=== PATIENT | female | born 1955 | race Caucasian/White ===

== ENCOUNTER 2019-12-24 07:31 | Outpatient (CLI) | payer OTHER, SELFPAY ==
--- NOTE | ~2019-12-24 | MM_ITS ---
EXAMINATION: MM screening [facility] w valerie HISTORY: Screening mammogram TECHNIQUE: Craniocaudal and mediolateral oblique 3-D tomosynthesis images were obtained and synthetic 2-D images were generated. CAD analysis was submitted and interpreted. COMPARISON: 12/06/2018 bilateral diagnostic digital mammogram 10/08/2016 and [facility] bilateral digital mammogram 05/11/2015 bilateral diagnostic digital mammogram and limited right breast ultrasound 05/01/2015 bilateral digital screening mammogram BREAST PARENCHYMAL COMPOSITION: There are scattered areas of fibroglandular density. FINDINGS: There is postoperative scarring and calcification of fat necrosis in the mid to upper outer right breast, with overlying retraction, stable since 12/06/2018. Status post right partial mastectom y for breast cancer. No interval suspicious mass or new architectural distortion or any malignant calcification, skin thic kening or new retraction is detected. In either breast. Occasional benign calcifications. There is no evidence of suspicious mass, calcification, or new architectural distortion to suggest malignancy in either breast. There has been no suspicious interval change. IMPRESSION: 1. Status post right partial mastectomy for breast cancer 2. No mammographic evidence of malignancy 3. Routine mammographic screening follow-up is recommended BI-RADS Category 2: Benign finding(s). Reviewed, dictated and finalized at location A. SURY ASSOCIATE
== END 2019-12-24 07:32 | disposition home or self-care (01) ==
LOC: ANHIMG 07:33
PROVIDERS: PCP Family Medicine; Visit Provider Obstetrics & Gynecology
DX: Z12.31 Encounter for screening mammogram for malignant neoplasm of breast (principal)
CPT/HCPCS: 77063; 77067

== ENCOUNTER 2020-05-24 13:18 | Outpatient (CLI) | payer OTHER, SELFPAY ==
--- NOTE | ~2020-05-24 | MM_ITS ---
EXAMINATION: MM diagnostic [facility] BI w valerie HISTORY: Palpable lump of the upper outer quadrant of the right breast, history of right breast cance r TECHNIQUE: Craniocaudal, mediolateral, and mediolateral oblique 3-D tomosynthesis images of the breas ts were performed and synthetic 2-D images were generated. CAD analysis was submitted and interpreted . COMPARISON: 12/24/2019, 12/06/2018,10/08/2016 BREAST PARENCHYMAL COMPOSITION: There are scattered areas of fibroglandular density. FINDINGS: There are lumpectomy changes in the upper outer quadrant of the right breast which include architectural distortion, fat necrosis, and dystrophic calcification. The palpable abnormality of con cern in the right breast corresponds to the small area of fat necrosis and associated dystrophic calc ification. There is no suspicious mass, calcification, or architectural distortion in either breast. There has been no suspicious interval change. IMPRESSION: 1. No mammographic evidence of malignancy. 2. Recommend routine screening mammography in one year. BI-RADS Category 2: Benign finding(s). Reviewed, dictated and finalized at location A.
== END 2020-05-24 13:19 | disposition home or self-care (01) ==
PROVIDERS: PCP Family Medicine; Visit Provider Obstetrics & Gynecology
DX: N63.10 Unspecified lump in the right breast, unspecified quadrant (principal); Z85.3 Personal history of malignant neoplasm of breast
CPT/HCPCS: 77062; 77066; G0279

== ENCOUNTER 2020-12-31 11:33 | Outpatient (CLI) | payer BC, SELFPAY ==
--- NOTE | ~2020-12-31 | US_ITS ---
EXAMINATION: US venous doppler [facility] DATE: 12/31/2020 12:05 INDICATION: Left lower limb swelling TECHNIQUE: Grayscale ultrasound images without and with compression and Doppler ultrasound images of the left lower extremity veins were obtained. COMPARISON: None. FINDINGS: The visualized portions of left common femoral vein, profunda (deep) femoral vein, femoral vein, popl iteal vein, peroneal veins, posterior tibial veins, gastrocnemius vein and greater saphenous vein out flow are patent. IMPRESSION: 1. No deep venous thrombosis in the left lower limb. Reviewed, dictated and finalized at location A. TENANT GOVERNOR
== END 2020-12-31 11:34 | disposition home or self-care (01) ==
PROVIDERS: PCP Family Medicine; Visit Provider Internal Medicine Cardiovascular Disease
DX: R60.9 Edema, unspecified (principal)
CPT/HCPCS: 93971

== ENCOUNTER 2021-05-11 07:23 | Outpatient (CLI) | payer BC, SELFPAY ==
--- NOTE | ~2021-05-11 | MM_ITS ---
EXAMINATION: MM screening [facility] BI w valerie HISTORY: Screening TECHNIQUE: Craniocaudal and mediolateral oblique 3-D tomosynthesis images were obtained and synthetic 2-D images were generated. CAD analysis was submitted and interpreted. COMPARISON: Comparison to multiple prior studies sequentially, with oldest reviewed study dated 05/11. BREAST PARENCHYMAL COMPOSITION: There are scattered areas of fibroglandular density. FINDINGS: There is architectural distortion and dystrophic calcification in the upper outer quadrant of the right breast, consistent with previous lumpectomy site. There is no evidence of suspicious mas s, calcification, or architectural distortion to suggest malignancy in either breast. There has been no suspicious interval change. IMPRESSION: 1. No mammographic evidence of malignancy. 2. Recommend routine screening mammography in one year. BI-RADS Category 2: Benign finding(s). Reviewed, dictated and finalized at location A.
== END 2021-05-11 07:24 | disposition home or self-care (01) ==
LOC: ANHIMG 07:25
PROVIDERS: PCP Family Medicine; Visit Provider Obstetrics & Gynecology
DX: Z12.31 Encounter for screening mammogram for malignant neoplasm of breast (principal)
CPT/HCPCS: 77063; 77067

== ENCOUNTER 2021-09-07 08:08 | Outpatient (CLI) | payer BC, SELFPAY ==
--- NOTE | ~2021-09-07 | XR_ITS ---
XR abdomen/kub 1V DATE: 09/07/2021 08:20 INDICATION: Constipation TECHNIQUE: AP projection, 2 views COMPARISON: None FINDINGS: There is a prominent amount of fecal material throughout the colon consistent with clinical complaint of constipation. No bowel obstruction is detected. No visceromegaly is evident. The psoas shadows appear intact. There is levoscoliosis and degenerative change of the lumbar spine. IMPRESSION: Prominent amount of fecal material in the colon consistent with constipation Reviewed, dictated and finalized at Location A. Reviewed, dictated and finalized at location A.
== END 2021-09-07 08:09 | disposition home or self-care (01) ==
LOC: ANHIMG 08:12
PROVIDERS: PCP Family Medicine; Visit Provider Nurse Practitioner Family
DX: K59.00 Constipation, unspecified (principal)
CPT/HCPCS: 74018

== ENCOUNTER 2022-06-06 07:14 | Outpatient (CLI) | payer BC, SELFPAY ==
--- NOTE | ~2022-06-06 | MM_ITS ---
EXAMINATION: MM screening [facility] BI w valerie HISTORY: Screening TECHNIQUE: Craniocaudal and mediolateral oblique 3-D tomosynthesis images were obtained and synthetic 2-D images were generated. CAD analysis was submitted and interpreted. COMPARISON: Comparison to multiple prior studies sequentially, with oldest reviewed study dated 09/17. BREAST PARENCHYMAL COMPOSITION: There are scattered areas of fibroglandular density. FINDINGS: There is no evidence of suspicious mass, calcification, or architectural distortion to sugg est malignancy in either breast. There has been no suspicious interval change. IMPRESSION: 1. No mammographic evidence of malignancy. 2. Recommend routine screening mammography in one year. BI-RADS Category 1: Negative Reviewed, dictated and finalized at location A.
== END 2022-06-06 07:15 | disposition home or self-care (01) ==
LOC: ANHIMG 07:16
PROVIDERS: PCP Family Medicine; Visit Provider Obstetrics & Gynecology
DX: Z12.31 Encounter for screening mammogram for malignant neoplasm of breast (principal)
CPT/HCPCS: 77063; 77067

== ENCOUNTER → 2023-06-08 10:35 | Outpatient (CLI) | payer MEDICARE, SELFPAY ==
--- NOTE | ~2023-06-08 | MM_ITS ---
EXAMINATION: MM screening [facility] w valerie HISTORY: Screening mammogram, history of right breast cancer TECHNIQUE: Craniocaudal and mediolateral oblique 3-D tomosynthesis images were obtained and synthetic 2-D images were generated. CAD analysis was submitted and interpreted. COMPARISON: 06/06/2022, 05/11/2021, 05/24/2020 BREAST PARENCHYMAL COMPOSITION: There are scattered areas of fibroglandular density. FINDINGS: Lumpectomy changes are noted in the right breast. No suspicious mass, calcification, or arc hitectural distortion are identified in either breast to suggest malignancy. There has been no suspic ious interval change. IMPRESSION: 1. No mammographic evidence of malignancy. 2. Recommend routine screening mammography in one year. BI-RADS Category 2: Benign finding(s). Reviewed, dictated and finalized at location A.
== END ==
PROVIDERS: PCP Family Medicine; Visit Provider Obstetrics & Gynecology
DX: Z12.31 Encounter for screening mammogram for malignant neoplasm of breast (principal)
CPT/HCPCS: 77063; 77067

== ENCOUNTER 2023-06-23 08:11 | Outpatient (CLI) | payer MEDICARE, SELFPAY ==
--- NOTE | ~2023-06-23 | NM_ITS ---
EXAM: NM gastric emptying study DATE: 06/23/2023 12:41 INDICATION: Constipation, unspecified. TECHNIQUE: A gastric emptying study was performed using the methodology of Juan R DEGROOT, et al. J Nucl Med 2007; 48:568-572. The patient was given a meal consisting of 2 scrambled eggs labeled with 0.944 mCi Tc-99m sulfur colloid, 2 slices of toast, two packages of jam, and approximately 120 mL of water . Simultaneous anterior and posterior 1-min images of the abdomen were obtained with the patient supi ne at multiple time points over a total period of 4 hours. The geometric mean of anterior and posteri or views was determined, and the percentage retention was calculated for each time point. COMPARISON: None. FINDINGS: Gastric retention of the radiotracer-labeled meal was 54%, 23%, and 2% at the 1-hour, 2-ho ur, and 4-hour time points, respectively. With this technique, apparent rapid gastric emptying is sug gested by <30% gastric retention at 1 hour. Delayed gastric emptying is defined by gastric retention of >90% at 1 hour, >60% retention at 2 hours, or >10% retention at 4 hours. IMPRESSION: 1. Normal gastric emptying. Reviewed, dictated and finalized at location A. IMPRESSION: 1. Normal gastric emptying.
== END 2023-06-23 08:12 | disposition home or self-care (01) ==
PROVIDERS: PCP Family Medicine; Visit Provider Nurse Practitioner Family
DX: K59.00 Constipation, unspecified (principal)
CPT/HCPCS: 78264; A9541

== ENCOUNTER 2024-01-22 09:45 | Outpatient (CLI) | payer MEDICARE, SELFPAY ==
--- NOTE | ~2024-01-22 | CT_ITS ---
EXAMINATION: CT diagnostic chest wo con DATE: 01/22/2024 10:10 INDICATION: Shortness of breath, chronic cough TECHNIQUE: Computed tomography (CT) of the chest was performed without intravenous contrast. The dose -length product (DLP) was 144.79 mGy-cm. Automated exposure control and iterative reconstruction tech nique were employed. COMPARISON: None FINDINGS: There is scarring of the lung apices. There are minimal subpleural opacities of the upper l lilly zones which could reflect sequela of prior infection. There are a few scattered small nodules shreya suring 2 to 3 mm, likely old granulomatous disease. The lungs are free of acute opacities. No pleural effusion or pneumothorax. There is mild atelectasis of the lingula. No pathologically enlarged thora cic lymph nodes are identified. The heart size is normal. There is a 1.6 cm cyst of the right hepatic lobe. There are loose bodies in the right shoulder. There is moderate thoracic spondylosis. IMPRESSION: 1. No CT correlate for the patient's symptoms. Reviewed, dictated and finalized at location B. LIFE FORENSIC GENETICIST
== END 2024-01-22 09:46 | disposition home or self-care (01) ==
PROVIDERS: PCP Family Medicine; Visit Provider Nurse Practitioner Family
DX: M35.08 Sjogren syndrome with gastrointestinal involvement (principal); Z77.22 Contact with and (suspected) exposure to environmental tobacco smoke (acute) (chronic)
CPT/HCPCS: 71250

== ENCOUNTER 2024-07-11 15:34 | Inpatient (IN) | payer MEDICARE, SELFPAY ==
[2024-07-11] VITALS (10 sets, daily range): BP systolic 114–131; BP diastolic 58–97; PULSE 98–118; RESP 16–24; TEMP 36.6–37.3; O2SAT 96–100; BMI 21.4
--- NOTE | ~2024-07-11 | XR_ITS ---
EXAMINATION: XR chest 1V portable DATE: 07/11/2024 16:20 INDICATION: Palpitations. Cough. Congestion. TECHNIQUE: A single frontal view of the chest was obtained on 2 radiographs. COMPARISON: Chest 2 views 05/08/2008, chest CT 01/22/2024 FINDINGS: There are airspace opacities in the lower lung zones. There is mild scarring at the lung ap ices. No pleural effusion or pneumothorax. The heart size is normal. IMPRESSION: 1. Airspace opacities in the lower lung zones, consistent with atelectasis/scarring versus pneumonia. 2. Mild scarring at the lung apices. Reviewed, dictated and finalized at location A. IMPRESSION: 1. Airspace opacities in the lower lung zones, consistent with atelectasis/scar ring versus pneumonia. 2. Mild scarring at the lung apices.
--- NOTE | ~2024-07-11 | XR_ITS ---
EXAMINATION: XR chest 1V portable DATE: 07/13/2024 09:51 INDICATION: Cough TECHNIQUE: frontal view of the chest was obtained. COMPARISON: Chest radiograph dated 07/11/2024 FINDINGS: Chronic moderate biapical pleural-parenchymal scarring. Patchy airspace opacities at the bilateral lo wer lung zones with appearance on prior CT favoring pneumonia over atelectasis. No pleural effusion o r pneumothorax. Heart size within normal limits for AP technique. Mild osteoarthritis at the bilater al shoulders with multiple loose osteochondral bodies at the right deep subscapular recess. IMPRESSION: 1. Patchy airspace opacities in bilateral lower lung zones consistent with pneumonia. Reviewed, dictated and finalized at location A. IMPRESSION: 1. Patchy airspace opacities in bilateral lower lung zones consistent with pneu monia.
--- NOTE | ~2024-07-11 | CT_ITS ---
Clinical Indication: Pulmonary embolus CT Scan of the Chest with Contrast: Technique: Contiguous sections were acquired throughout the chest after intravenous administration of 100 cc of Omnipaque 350. Dose reduction technique was used on this scan by utilizing automated expos ure control and iterative reconstruction technique. The dose-length product (DLP) was 180.78 mGy-cm. COMPARISON: 01/22/2024 Findings: There is no evidence of any significant mediastinal, hilar or axillary lymphadenopathy. There is no f illing defect in the pulmonary arterial tree to suggest pulmonary embolus. There is no evidence of ao rtic dissection or aneurysm. There is no evidence of pleural or pericardial effusion. There is patchy bilateral lower lobe airspace consolidation, suspicious for pneumonia versus possibly atelectasis. There is mild bibasilar bronchiolectasis and mild subpleural reticulation, compatible w ith minimal chronic interstitial change. There is mild biapical scarring. Images through the upper abdomen reveal no abnormalities. Impression: No evidence of pulmonary embolus, aortic dissection, or aortic aneurysm. Patchy bibasilar pneumonia. Probable minimal chronic interstitial changes. Reviewed, dictated and finalized at [facility]. Impression: No evidence of pulmonary embolus, aortic dissection, or aortic aneurysm. Patchy bibasilar pneumonia. Probable minimal chronic interstitial changes.
--- NOTE | 2024-07-11 15:37 | ECG_ITS ---
Test Date: 2024-07-11 15:40:57 Measurements Intervals [place] Rate: 150 P: 0 UT: 0 QRS: 70 QRSD: 93 T: 67 QT: 266 QTc: 421 Interpretive Statements ATRIAL FIBRILLATION WITH RAPID VENTRICULAR RESPONSE INCOMPLETE RIGHT BUNDLE BRANCH BLOCK [90+ ms QRS DURATION, TERMINAL R IN V1/V2, 40+ ms S IN I/aVL/V4/V5/V6] No previous ECG available for comparison Electronically Signed On 07-12-2024 15:29:25 CDT by Marilin Xiao M.D.
--- NOTE | 2024-07-11 15:44 | ED.ARRPALP ---
HPI - Arrhythmia/Palpitations General Chief Complaint: Arrhythmia/Palpitations <Jennifer Cast PA-C - Last Filed: 07/12/24 10:50> Stated Complaint: A FIB WITH RVR <Jennifer Cast PA-C - Last Filed: 07/12/24 10:50> Time Seen by Provider: 07/11/24 15:44 <Jennifer Cast PA-C - Last Filed: 07/12/24 10:50> Focused HPI: This is a 68 year old female that presents to the ER for atrial fibrillation with RVR. She was sent from her doctor's office. No previous history of this. Reports some shortness of breath and a cough. Denies chest pain. GENERAL: Well-appearing, well-nourished, and in no acute distress. HEAD: Normocephalic, atraumatic. CHEST: Clear to auscultation. ?No respiratory distress. HEART: Irregularly irregular? NEURO: ?Alert and oriented x3. Patient screened in triage and initial orders placed.? ?Additional care and disposition to be based upon?diagnostic testing and treatment. <Jennifer Cast PA-C - Last Filed: 07/12/24 10:50> Source: patient <Maulik Tran MD - Last Filed: 07/11/24 18:51> Mode of arrival: ambulatory <Maulik Tran MD - Last Filed: 07/11/24 18:51> Limitations: no limitations <Maulik Tran MD - Last Filed: 07/11/24 18:51> History of Present Illness HPI narrative: 68-year-old otherwise healthy here with the complaints of this condition for past 1 week was at the doctor's office had an EKG done which showed AFib but was later referred here to the ER for further workup. Patient denies having any chest pain, lightheadedness. No previous history of AFib. <Maulik Tran MD - Last Filed: 07/11/24 18:51> complaint: rapid heart beat <Maulik Tran MD - Last Filed: 07/11/24 18:51> Duration: constant <Maulik Tran MD - Last Filed: 07/11/24 18:51> Severity: moderate <Mualik Tran MD - Last Filed: 07/11/24 18:51> Associated symptoms: denies other symptoms <Maulik Tran MD - Last Filed: 07/11/24 18:51> Related Data Home Medications: Home Medications Medication Instructions Recorded Confirmed No Home Medications 07/11/24 07/11/24 <Jennifer Cast PA-C - Last Filed: 07/12/24 10:50> Allergies/Adverse Reactions: Allergies Allergy/AdvReac Type Severity Reaction Status Date / Time No Known Allergies Allergy Unknown Verified 07/11/24 09:31 <Jennifer Cast PA-C - Last Filed: 07/12/24 10:50> Review of Systems Review of Systems: All systems reviewed & are unremarkable except as noted in HPI and below <Maulik Tran MD - Last Filed: 07/11/24 18:51> Constitutional: Constitutional: Reports no additional constitutional complaints <Maulik Tran MD - Last Filed: 07/11/24 18:51> Eyes: Eyes: Reports no additional eye complaints <Maulik Tran MD - Last Filed: 07/11/24 18:51> ENT: Reports system reviewed and no additional complaints, except as documented <Maulik Tran MD - Last Filed: 07/11/24 18:51> Cardiovascular: Cardiovascular: Reports no additional cardiovascular complaints <Maulik Tran MD - Last Filed: 07/11/24 18:51> Respiratory: Respiratory: Reports as per HPI <Maulik Tran MD - Last Filed: 07/11/24 18:51> Gastrointestinal: Gastrointestinal: Reports no additional gastrointestinal complaints <Maulik Tran MD - Last Filed: 07/11/24 18:51> Musculoskeletal: Musculoskeletal: Reports no additional musculoskeletal complaints <Maulik Tran MD - Last Filed: 07/11/24 18:51> Neurologic: Reports system reviewed and no additional complaints, except as documented <Maulik Tran MD - Last Filed: 07/11/24 18:51> PMFSH Past Medical History Medical History: Medical History EDUARDO (acute kidney injury) Alopecia Anxiety Breast cancer Elevated liver enzymes Hypomagnesemia Low back pain Neck pain Raynaud's phenomenon (by history or observed) Screening, lipid Shoulder pain Sjogrens syndrome Vitamin B12 defic
[2024-07-11] MEDS: dilTIAZem HCl INJ 25 MG/5 ML VIAL 10 MG IV PUSH (15:56)
[2024-07-11] MEDS: SODIUM CHLORIDE 0.9% IV 1,000 ML 150 ML IV CONT (15:56)
[2024-07-11 16:08] LABS: Basophils Absolute Auto 0.1 K/mm3 (0.0-0.1); Basophils Percent Auto 0.4 % (0.2-1.2); Eosinophils Absolute Auto 0.1 K/mm3 (0-0.3); Eosinophils Percent Auto 0.7 % (0-4.4); Hematocrit 42.9 % (37.0-47.0); Hemoglobin 14.3 g/dL (12.0-15.0); Immature Granulocyte Absolute 0.25 K/mm3 (0.00-0.031); Immature Granulocyte Percent A 1.3 % (0-0.5); Lymphocytes Absolute Auto 1.56 K/mm3 (0.9-3.2); Lymphocytes Percent Auto 8.4 % (18.3-44.2); Mean Corpuscular HGB Conc 33.3 g/dl (32-36); Mean Platelet Volume 9.2 fl (7.4-10.4); Monocytes Absolute Auto 1.1 K/mm3 (0.1-0.6); Monocytes Percent Auto 5.9 % (2.6-8.5); Neutrophils Absolute Auto 15.4 K/mm3 (1.3-6.7); Neutrophils Percent Auto 83.3 % (45.5-73.1); Platelet Count Result 359 k/mm3 (150-375); Red Blood Count 4.47 M/mm3 (4.2-5.4); Red Cell Distribution Width 12.7 % (11.5-14.5); White Blood Count 18.5 K/mm3 (4.5-10.0)
[2024-07-11 16:25] LABS: Alanine Aminotransferase 32 U/L (6-35); Albumin Level 4.3 g/dL (3.5-5.1); Alkaline Phosphatase 84 U/L (38-126); Anion Gap 15 mmol/L (4-12); Aspartate Amino Transferase 43 U/L (14-36); Bilirubin,Total 1.1 mg/dL (0.2-1.3); Blood Urea Nitrogen 20 mg/dL (7-17); Calcium 8.7 mg/dL (8.4-10.2); Carbon Dioxide 23 mmol/L (22-30); Chloride 96 mmol/L (98-107); Estimated CRCL calculation 59 ml/min; Estimated Glomerular Filt Rate > 60; Glucose 101 mg/dL (65-110); Lipase 126 U/L (23-300); Sodium 134 mmol/L (137-145)
[2024-07-11 16:32] LABS: INR 1.1; Prothrombin Time 14.8 Seconds (11.1-14.7)
[2024-07-11 16:33] LABS: Partial Thromboplastin Time 25.8 Seconds (22.3-36.8)
[2024-07-11 16:34] LABS: Troponin I < 0.012 ng/mL (0.000-0.034)
--- NOTE | 2024-07-11 17:05 | ECG_ITS ---
Test Date: 2024-07-11 17:28:47 Measurements Intervals [place] Rate: 106 P: 0 NM: 0 QRS: 67 QRSD: 90 T: 71 QT: 318 QTc: 423 Interpretive Statements ATRIAL FIBRILLATION WITH RAPID VENTRICULAR RESPONSE INCOMPLETE RIGHT BUNDLE BRANCH BLOCK Compared to ECG 07/11/2024 15:40:57 HEART RATE IS SLOWER NOW Electronically Signed On 07-12-2024 15:32:41 CDT by Marilin Xiao M.D.
[2024-07-11] MEDS: dilTIAZem 100 MG/100 ML 100 MG/100 ML BAG IV CONT (17:55)
--- NOTE | 2024-07-11 18:34 | PM.IMHP ---
H&P: HPI History of Present Illness Date/Time: 07/11/24 18:34 Chief Complaint: palpitations Narrative: This is a 68-year-old female with a significant past medical history of anxiety, breast cancer, Raynaud's phenomenon, Sjogren syndrome, vitamin B12 deficiency presented to the hospital with palpitations. She was recently at an urgent care in [facility] and was prescribed azithromycin, Solu-Medrol Dosepak, Tessalon Perles, promethazine cough syrup, and Breztri inhaler. Patient states that she could not stop coughing and still had shortness of breath and was waking up in the middle night with sweats. Since she was not feeling better after her urgent care visit she initially went to her primary care office today for additional workup. She has been battling this upper respiratory infection for 10 days. She was found to be in AFib with RVR with a rate of 150 and was sent to the hospital for further workup. Workup in the hospital included a chest x-ray which showed airspace opacities in the lower lung zones consistent with atelectasis versus pneumonia, mild scarring at the lung apices. Initial labs showed a white blood cell count of 18.5, sodium 134, chloride 96, AST 43, troponin was negative, lipase 126, TSH 2.330. EKG here at the hospital showed AFib with RVR with a rate of 106, QTC 423. Patient was given 10 mg IV push of Cardizem and started on Cardizem drip at 5 mg/hour. Review of Systems Review of Systems: All systems reviewed & are unremarkable except as noted in HPI and below Constitutional: Constitutional: Reports as per HPI and Reports no additional constitutional complaints Eyes: Eyes: Reports as per HPI and Reports no additional eye complaints ENT: Reports system reviewed and no additional complaints, except as documented and Reports as per HPI Cardiovascular: Cardiovascular: Reports as per HPI and Reports no additional cardiovascular complaints Respiratory: Respiratory: Reports as per HPI and Reports no additional respiratory complaints Gastrointestinal: Gastrointestinal: Reports as per HPI and Reports no additional gastrointestinal complaints Genitourinary: Genitourinary: Reports no additional female genitourinary complaints and Reports as per HPI Musculoskeletal: Musculoskeletal: Reports no additional musculoskeletal complaints and Reports as per HPI Integumentary/Breasts: Skin/Breast: Reports system reviewed and no additional complaints, except as docu and Reports as per HPI Neurologic: Reports system reviewed and no additional complaints, except as documented and Reports as per HPI Psychiatric: Psychiatric: Reports no additional psychiatric complaints and Reports as per HPI [facility] Past Medical History Medical History EDUARDO (acute kidney injury) Alopecia Anxiety Breast cancer Elevated liver enzymes Hypomagnesemia Low back pain Neck pain Raynaud's phenomenon (by history or observed) Screening, lipid Shoulder pain Sjogrens syndrome Vitamin B12 deficiency Surgical History Surgical History H/O: hysterectomy Family History Family History Mother Hypertension Parkinson's disease Grandparent Family history of malignant neoplasm Father No problems noted. Sibling Heart disease Social History Social History Smoking status: Never smoker Second hand tobacco smoke exposure: No Alcohol intake: current Drinks per week: 1 Substance use: never Substance use type: does not use Do You Feel Safe in your Home?: Yes Lack of Transportation: No Lack of Food: Never True Current Housing: I Have Housing Concerned About Future Housing: No Difficulty Paying Gas/Electric Bills: No Difficulty Paying for Meds: No Currently Unemployed: No Education: [employer]
--- NOTE | 2024-07-11 18:44 | ECG_ITS ---
Test Date: 2024-07-11 18:48:33 Measurements Intervals [place] Rate: 101 P: 0 [place]: 0 QRS: 67 QRSD: 88 T: 69 QT: 325 QTc: 422 Interpretive Statements ATRIAL FIBRILLATION WITH RAPID VENTRICULAR RESPONSE INCOMPLETE RIGHT BUNDLE BRANCH BLOCK Compared to ECG 07/11/2024 17:28:47 NO SIGNIFICANT CHANGES Electronically Signed On 07-12-2024 15:38:24 CDT by Marilin Xiao M.D.
[2024-07-11 19:21] LABS: Troponin I < 0.012 ng/mL (0.000-0.034)
[2024-07-11] MEDS: AZITHROMYCIN 250 MG TABLET 500 MG PO (20:32)
--- NOTE | 2024-07-11 20:50 | ADMGEN ---
This patient, Beatriz Courtney, was admitted to IMU Room 205-02. Patient/family oriented to hospital policies and general routines including ID bracelet, bed and alarms, visiting hours, pain management, procedures, bathroom and other care routines, personal items, smoking policy, room service/diet, and visiting hours. Information on how to activate the Rapid Response Team has been discussed. Patient/Family are encouraged to report perceived risks to care and to ask questions if they do not understand what they are told or what they should do.
[2024-07-11 20:51] LABS: Influenza A QL RT-PCR Negative (Negative); Influenza B QL RT-PCR Negative (Negative); RSV RNA, RT-PCR Negative (Negative); SARS-CoV-2 RNA PCR Negative (Negative)
[2024-07-11] MEDS: SODIUM CHLORIDE 0.9% IV 1,000 ML 125 ML IV CONT (21:13)
[2024-07-11] MEDS: APIXABAN 5 MG TABLET PO (21:13)
[2024-07-11 22:17] LABS: Troponin I < 0.012 ng/mL (0.000-0.034)
[2024-07-11 22:26] LABS: MRSA (PCR) NOT DETECTED (NOT DETECTE)
[2024-07-11] MEDS: guaiFENesin/DEXTROMETHORPHAN 10 ML UDC PO (22:47)
[2024-07-11] MEDS: FUROSEMIDE INJ 40 MG/4 ML VIAL 20 MG IV PUSH (23:46)
[2024-07-12] VITALS (29 sets, daily range): BP systolic 102–120; BP diastolic 61–73; PULSE 82–117; RESP 16–24; TEMP 36.6–37.2; O2SAT 92–95
--- NOTE | 2024-07-12 | ECHO_ITS ---
Patient Info Name: Beatriz Courtney Age: 68 years : 1955 Gender: Female Ht: 68 in Wt: 138 lbs BSA: 1.73 m2 HR: 98 bpm BP: 108 / 67 mmHg Heart Rhythm: Atrial Fibrillation Technical Quality: Fair Exam Date: 07/12/2024 10:19 AM Exam Location: Echo Lab Patient Status: Inpatient Admit Date: 07/11/2024 Staff Ordering Physician: Maulik Tran MD Naturopathic Doctor: Akilah Forte RDCS Attending Provider: Chandan Cherry MD Exam Type: CA echo doppler color flow Study Info Indications - afib Complete two-dimensional, color flow and Doppler transthoracic echocardiogram is performed. Summary 1. Complete two-dimensional, color flow and Doppler transthoracic echocardiogram is performed. 2. Left ventricular chamber dimension is normal. 3. Left ventricular systolic function is normal, estimated at 55-60%. 4. The left ventricular diastolic function is normal. 5. E/e' 7 is not elevated. 6. Atrial fibrillation. 7. Left atrial chamber dimension is moderately enlarged. 8. Right atrial chamber dimension is moderately enlarged. 9. There is mild aortic valve sclerosis. 10. There is mild to moderate aortic valve regurgitation. 11. There is mild mitral valve regurgitation. 12. There is trace tricuspid valve regurgitation. 13. No pulmonary hypertension, estimated pulmonary arterial systolic pressure is 25 mmHg. Left Ventricle E/e' 7 is not elevated. Atrial fibrillation. Left ventricular chamber dimension is normal. Left ventricular systolic function is normal, estimated at 55-60%. The left ventricular diastolic function is normal. Right Ventricle Right ventricular systolic function is normal and with normal TAPSE 1.9 cm. Right ventricular chamber dimension is normal. Left Atria Left atrial chamber dimension is moderately enlarged. Right Atria Right atrial chamber dimension is moderately enlarged. Aortic Valve The aortic valve is trileaflet. There is mild aortic valve sclerosis. There is no aortic valve stenosis. There is mild to moderate aortic valve regurgitation. Pulmonic Valve There is no pulmonic regurgitation. Mitral Valve There is no mitral valve stenosis. There is mild mitral valve regurgitation. Tricuspid Valve There is trace tricuspid valve regurgitation. No pulmonary hypertension, estimated pulmonary arterial systolic pressure is 25 mmHg. Pericardium/Pleural There is no pericardial effusion. Inferior Vena Cava Normal inferior vena cava with >50% collapse upon inspiration consistent with normal right atrial pressure, 5 mmHg. Aorta The aortic root size at the sinus of Valsalva is normal. Left Ventricular Outflow Tract Name Value Normal LVOT 2D LVOT Diameter 2.0 cm LVOT Doppler LVOT Peak Gradient 2 mmHg LVOT Mean Gradient 1 mmHg LVOT VTI 13 cm LVOT VTI/AV VTI Ratio 0.4 LVOT Stroke Volume 39 ml LVOT CO 3.1 l/min LVOT CI 1.8 l/min/m2 Pulmonic Valve Name
[2024-07-12] MEDS: ONDANSETRON INJ 4 MG/2 ML VIAL IV PUSH (00:41)
[2024-07-12] MEDS: IPRATROPIUM 0.5 MG/ALBUTEROL SULFATE 2.5 MG AMPUL.NEB 3 ML INHALATION ×4 (02:38→20:16)
[2024-07-12 05:36] LABS: Basophils Percent Auto 0.2 % (0.2-1.2); Eosinophils Absolute Auto 0.2 K/mm3 (0-0.3); Eosinophils Percent Auto 1.4 % (0-4.4); Hematocrit 37.4 % (37.0-47.0); Hemoglobin 12.5 g/dL (12.0-15.0); Immature Granulocyte Absolute 0.16 K/mm3 (0.00-0.031); Immature Granulocyte Percent A 1.1 % (0-0.5); Lymphocytes Absolute Auto 1.02 K/mm3 (0.9-3.2); Mean Corpuscular HGB Conc 33.4 g/dl (32-36); Mean Corpuscular Hemoglobin 32.1 pg (26-34); Mean Corpuscular Volume 96.1 fl (80-100); Mean Platelet Volume 9.4 fl (7.4-10.4); Monocytes Absolute Auto 0.8 K/mm3 (0.1-0.6); Monocytes Percent Auto 5.3 % (2.6-8.5); Neutrophils Absolute Auto 12.4 K/mm3 (1.3-6.7); Platelet Count Result 289 k/mm3 (150-375); Red Blood Count 3.89 M/mm3 (4.2-5.4); Red Cell Distribution Width 12.9 % (11.5-14.5); White Blood Count 14.6 K/mm3 (4.5-10.0)
[2024-07-12 05:53] LABS: Alanine Aminotransferase 25 U/L (6-35); Albumin Level 3.7 g/dL (3.5-5.1); Alkaline Phosphatase 74 U/L (38-126); Anion Gap 12 mmol/L (4-12); Aspartate Amino Transferase 33 U/L (14-36); Bilirubin,Total 0.8 mg/dL (0.2-1.3); Blood Urea Nitrogen 16 mg/dL (7-17); Calcium 8.2 mg/dL (8.4-10.2); Carbon Dioxide 24 mmol/L (22-30); Chloride 98 mmol/L (98-107); Estimated CRCL calculation 60 ml/min; Estimated Glomerular Filt Rate > 60; Glucose 97 mg/dL (65-110); Potassium 3.6 mmol/L (3.4-5.0); Sodium 134 mmol/L (137-145)
--- NOTE | 2024-07-12 07:52 | PM.CNCAR ---
Assessment and Plan Assessment and plan (1) Atrial fibrillation with RVR: Code(s): I48.91 - Unspecified atrial fibrillation Status: Acute Assessment and Plan: Per symptoms she may have had PAF for 2 months or new onset due to pneumonia. [id number] 2. Started on Eliquis. On Diltiazem drip for rate control. Would anticoagulate for 3-4 weeks and rate control, then if still in atrial fib, would cardiovert. Stop Diltiazem drip. Start Metoprolol Tartate 25 mg PO q6 hrs. If still rapid then add PO Diltiazem. Obtain echo. (2) Community acquired pneumonia: Code(s): J18.9 - Pneumonia, unspecified organism Status: Acute Assessment and Plan: On antibiotics as per hospitalist. History of Present Illness History of Present Illness Consult date/time: 07/12/24 07:52 Reason For Visit: New Onset Atrial Fibrillation With RVR Narrative: 68 yr old woman presents to ER with sob. She has a history of Sjogren syndrome, Raynaud's phenomenon, anxiety. Reports for last 2 months she has been having palpitations but thought it was her anxiety as her in Dec 2023. She noted more sob, went to Urgent Care, and given steroids and inhalers, but did not improve. She came to ER and was told she had pneumonia and was in rapid atrial fibrillation. She is coughing, and has fatigue. No fever or chills. Normally she can walk miles without any problems. Denies chest pain, orthopnea, PND, edema, dizziness. Review of Systems Review of Systems: All systems reviewed & are unremarkable except as noted in HPI and below Constitutional: Constitutional: Reports as per HPI, Denies chills, Reports fatigue and Denies fever(s) Cardiovascular: Cardiovascular: Reports as per HPI, Denies chest pain and Reports irregular heart rhythm Respiratory: Respiratory: Reports as per HPI and Reports dyspnea Gastrointestinal: Gastrointestinal: Reports as per HPI and Denies abdominal pain Genitourinary: Genitourinary: Reports as per HPI and Denies dysuria Musculoskeletal: Musculoskeletal: Reports as per HPI Neurologic: Reports as per HPI, Denies dizziness and Denies syncope [facility] Past Medical History Medical History EDUARDO (acute kidney injury) Alopecia Anxiety Breast cancer Elevated liver enzymes Hypomagnesemia Low back pain Neck pain Raynaud's phenomenon (by history or observed) Screening, lipid Shoulder pain Sjogrens syndrome Vitamin B12 deficiency Surgical History Surgical History H/O: hysterectomy Family History Family History Mother Hypertension Parkinson's disease Grandparent Family history of malignant neoplasm Father No problems noted. Sibling Heart disease Social History Social History Smoking status: Never smoker Second hand tobacco smoke exposure: No Alcohol intake: current Drinks per week: 1 Substance use: never Substance use type: does not use Do You Feel Safe in your Home?: Yes Lack of Transportation: No Lack of Food: Never True Current Housing: I Have Housing Concerned About Future Housing: No Difficulty Paying Gas/Electric Bills: No Difficulty Paying for Meds: No Currently Unemployed: No Education: Bachelor's Degree Difficulty w/ Childcare or Family Care: No Living arrangements: with family Occupation/Education: retired 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
[2024-07-12] MEDS: AZITHROMYCIN 250 MG TABLET 500 MG PO (07:56)
[2024-07-12] MEDS: APIXABAN 5 MG TABLET PO ×2 (07:56→21:05)
[2024-07-12] MEDS: BENZONATATE 100 MG CAPSULE PO ×3 (07:57→17:07)
[2024-07-12] MEDS: METOPROLOL TARTRATE 25 MG TABLET PO ×3 (08:06→17:07)
--- NOTE | 2024-07-12 14:32 | PM.IMPN ---
Progress Note: A&P Assessment and Plan (1) Atrial fibrillation with RVR: Code(s): I48.91 - Unspecified atrial fibrillation Status: Acute (2) Community acquired pneumonia: Code(s): J18.9 - Pneumonia, unspecified organism Status: Acute Plan This is a 68-year-old female who presents to the ER for atrial fibrillation with rapid ventricular rate. She was sent from her doctor's office. She reports some shortness of breath and cough. Denies any chest pain. She been having this symptoms for a week. EKG done at doctor's office showed AFib with RVR and hence was referred to ER for further workup. This is a new diagnosis for her. She was recently at an urgent care at [place] it was given azithromycin Solu Medrol Dosepak Tessalon Perles cough syrup. Patient could not stop coughing and still had shortness of breath and was waking up in the middle night with sweats. Since she did not feel better after the urgent care visits she went to see primary care yesterday. She has been battling this upper respiratory infection for past 10 days. In the ED she was found to be in AFib with RVR with a rate of 150. Initial laboratory studies showed WBC count of 18 K sodium 134 chloride 96 AST 43 troponin was negative lipase 126 TSH was 2.33. EKG in the ER with AFib with RVR with a rate of 106 QTC 423. She received 10 mg IV push of Cardizem was started on Cardizem drip. Chest x-ray with airspace opacities in the lower lung zone consistent with atelectasis/scarring versus pneumonia with mild scarring at the lung apices. CTA performed to rule out PE rule out PE but showed patchy bibasilar pneumonia along with probable minimal chronic interstitial changes. She has been started on Rocephin and azithromycin. Supportive treatment. Urine antigens blood cultures. AFib with RVR cardiology consulted beta-brianda started started on Eliquis. Echo with EF 55-60% mild to moderate AR no pulmonary hypertension. DVT prophylaxis on Eliquis Subjective Date/time seen: 07/12/24 14:32 Interval history: Feeling better. Still has some cough. AFib controlled Review of Systems Review of Systems: All systems reviewed & are unremarkable except as noted in HPI and below Exam Narrative: General: In no acute distress alert and oriented x3 Head: atraumatic, no encephalopathy Eyes: EOMI, PERRLA, sclera clear Neck: supple, 2++ JVD, no adenopathy, trachea midline Cardiac: Normal S1 and S2. Irregular rate and rhythm rate controlled, No murmur, gallops or friction rubs, peripheral pulses intact. Respiratory: Lung sounds coarse bilaterally, no adventitious lung sounds Gastrointestinal: soft, non-distended, non-tender, normoactive bowel sounds. Extremities: moves all extremities well, no edema, good ROM, strength 5/5 Skin: clean, dry, intact. No wounds or lesions. Neuro: Alert and oriented x4, cranial nerves intact, no neuro deficits. Psych: normal mood, normal affect, interactive Objective Data Vital Signs Vital Signs: Vital Signs - 24 hr 07/11/24 15:36 07/11/24 15:43 07/11/24 17:55 Temperature 98.7 F Pulse Rate 98 101 H 118 H Respiratory Rate 16 Blood Pressure 126/84 131/90 Pulse Oximetry 99 Oxygen Delivery Room Air 07/11/24 17:58 07/11/24 17:45 07/11/24 18:45 Temperature 97.9 F Pulse Rate 118 H 115 H 105 H Respiratory Rate 20 20 20 Blood Pressure 131/90 115/70 119/65 Pulse Oximetry 97 100 98 Oxygen Delivery 07/11/24 18:52 07/11/24 21:07 07/11/24 22:00 Temperature 97.8 F Pulse Rate 113 H 103 H 107 H Respiratory Rate 24 H 22 H Blood Pressure 119/97 H 129/60 Pulse Oximetry 97 96 Oxygen Delivery 07/11/24 23:07 07/11/24 21:07 07/11/24 23:07 Temperature 99.2 F Pulse Rate 111 H 103 H 111 H Respiratory Rate 20 Blood Pressure 114/58 L 129/60 114/58 L Pulse Oximetry 97 Oxygen Delivery 07/12/24 00:00 07/12/24 01:07 07/12/24 01:07 Temperature Pulse Rate 102 H 97 97 Respiratory Rate Bl
[2024-07-12] MEDS: guaiFENesin/DEXTROMETHORPHAN 10 ML UDC PO (15:27)
[2024-07-13] VITALS (29 sets, daily range): BP systolic 90–126; BP diastolic 54–71; PULSE 80–156; RESP 16–20; TEMP 36.3–37.2; O2SAT 93–96
[2024-07-13] MEDS: METOPROLOL TARTRATE 25 MG TABLET PO ×2 (00:03→05:13)
[2024-07-13] MEDS: dilTIAZem HCL 30 MG TABLET PO ×2 (00:03→05:13)
[2024-07-13] MEDS: guaiFENesin/DEXTROMETHORPHAN 10 ML UDC PO ×4 (00:06→20:04)
[2024-07-13] MEDS: IPRATROPIUM 0.5 MG/ALBUTEROL SULFATE 2.5 MG AMPUL.NEB 3 ML INHALATION ×4 (02:15→20:06)
[2024-07-13 04:33] LABS: Basophils Absolute Auto 0.1 K/mm3 (0.0-0.1); Basophils Percent Auto 0.3 % (0.2-1.2); Eosinophils Absolute Auto 0.1 K/mm3 (0-0.3); Eosinophils Percent Auto 0.5 % (0-4.4); Hematocrit 37.5 % (37.0-47.0); Hemoglobin 12.3 g/dL (12.0-15.0); Immature Granulocyte Absolute 0.21 K/mm3 (0.00-0.031); Immature Granulocyte Percent A 1.1 % (0-0.5); Lymphocytes Absolute Auto 1.06 K/mm3 (0.9-3.2); Lymphocytes Percent Auto 5.7 % (18.3-44.2); Mean Corpuscular HGB Conc 32.8 g/dl (32-36); Mean Corpuscular Hemoglobin 31.4 pg (26-34); Mean Corpuscular Volume 95.7 fl (80-100); Monocytes Percent Auto 5.6 % (2.6-8.5); Neutrophils Absolute Auto 16.2 K/mm3 (1.3-6.7); Neutrophils Percent Auto 86.8 % (45.5-73.1); Platelet Count Result 299 k/mm3 (150-375); Red Blood Count 3.92 M/mm3 (4.2-5.4); Red Cell Distribution Width 12.6 % (11.5-14.5); White Blood Count 18.7 K/mm3 (4.5-10.0)
[2024-07-13 04:43] LABS: Alanine Aminotransferase 28 U/L (6-35); Albumin Level 3.6 g/dL (3.5-5.1); Alkaline Phosphatase 78 U/L (38-126); Anion Gap 11 mmol/L (4-12); Aspartate Amino Transferase 36 U/L (14-36); Bilirubin,Total 1.1 mg/dL (0.2-1.3); Blood Urea Nitrogen 12 mg/dL (7-17); Calcium 8.4 mg/dL (8.4-10.2); Carbon Dioxide 26 mmol/L (22-30); Chloride 97 mmol/L (98-107); Estimated CRCL calculation 68 ml/min; Estimated Glomerular Filt Rate > 60; Glucose 112 mg/dL (65-110); Magnesium 2.2 mg/dL (1.6-2.3); Potassium 3.6 mmol/L (3.4-5.0); Sodium 134 mmol/L (137-145)
--- NOTE | 2024-07-13 08:02 | PM.PNCARD ---
Progress Note: A&P Assessment and Plan (1) Atrial fibrillation with RVR: Code(s): I48.91 - Unspecified atrial fibrillation Status: Acute Assessment and Plan: Per symptoms she may have had PAF for 2 months or new onset due to pneumonia. [id number] 2. Started on Eliquis. 07/12/24 Echo: EF 55-60%, mod biatrial enlargement, mild-mod TR. Would anticoagulate for 3-4 weeks and rate control, then if still in atrial fib, would cardiovert. On Metoprolol Tartate 25 mg PO q6 hrs and Diltiazem 30 mg PO q6 hrs. Change Metoprolol 100 mg BID. Stop Diltiazem. If HR controlled may d/c home from cardiology standpoint and f/u with me in 1 week. (2) Community acquired pneumonia: Code(s): J18.9 - Pneumonia, unspecified organism Status: Acute Assessment and Plan: On antibiotics as per hospitalist. Subjective Date/time seen: 07/13/24 08:02 Interval history: Feeling better. Still has some cough. Denies chest pain or sob. Exam Const: General: cooperative, healthy appearing and comfortable Orientation/consciousness: oriented to person, oriented to place and oriented to time Resp: Auscultation: no crackles, no rales, no rhonchi, no wheezes and diminished lung sounds Other: Coarse breath sounds bilaterally Cardio: Rate: regular rate Rhythm: abnormal rhythm Heart sounds: no murmurs Peripheral pulses: dorsalis pedis present Neuro: General: oriented to person, oriented to place and oriented to time Extrem: Right lower extremity: no edema Left lower extremity: no edema Objective Data Vital Signs Vital Signs: Vital Signs - 24 hr 07/12/24 08:06 07/12/24 09:45 07/12/24 11:49 Temperature 97.8 F Pulse Rate 114 H 82 91 Respiratory Rate 20 Blood Pressure 102/63 Pulse Oximetry 95 Oxygen Delivery 07/12/24 12:19 07/12/24 12:00 07/12/24 12:00 Temperature Pulse Rate 92 90 Respiratory Rate Blood Pressure Pulse Oximetry Oxygen Delivery Room Air 07/12/24 13:51 07/12/24 14:07 07/12/24 14:15 Temperature Pulse Rate 89 83 95 Respiratory Rate 18 18 Blood Pressure Pulse Oximetry Oxygen Delivery 07/12/24 15:48 07/12/24 17:07 07/12/24 16:00 Temperature 98.9 F Pulse Rate 105 H 117 H 101 H Respiratory Rate 16 Blood Pressure 120/65 Pulse Oximetry 94 Oxygen Delivery 07/12/24 18:00 07/12/24 16:00 07/12/24 20:16 Temperature Pulse Rate 98 108 H Respiratory Rate 20 Blood Pressure Pulse Oximetry Oxygen Delivery Room Air 07/12/24 20:23 07/12/24 20:00 07/12/24 20:00 Temperature 98.6 F Pulse Rate 114 H 116 H 113 H Respiratory Rate 20 16 Blood Pressure 112/73 Pulse Oximetry 92 Oxygen Delivery 07/12/24 22:00 07/13/24 00:03 07/13/24 00:00 Temperature 97.7 F Pulse Rate 117 H 131 H 129 H Respiratory Rate 20 Blood Pressure 126/71 Pulse Oximetry 94 Oxygen Delivery 07/13/24 00:00 07/13/24 02:00 07/13/24 02:15 Temperature Pulse Rate 156 H 81 90 Respiratory Rate 20 Blood Pressure Pulse Oximetry Oxygen Delivery 07/13/24 02:22 07/13/24 04:00 07/13/24 05:13 Temperature 97.3 F L Pulse Rate 83 106 H 95 Respiratory Rate 20 18 Blood Pressure 109/66 Pulse Oximetry 93 Oxygen Delivery 07/13/24 04:00 07/13/24 06:00 07/13/24 07:40 Temperature 97.5 F L Pulse Rate 84 97 84 Respiratory Rate 16 Blood Pressure 90/59 L Pulse Oximetry 93 Oxygen Delivery Intake/Output Intake/Output: Intake & Output 07/10/24 07/11/24 07/12/24 07/13/24 23:59 23:59 23:59 23:59 Intake Total 1394.8 1014.4 350 Output Total 2400 Balance 1394.8 -1385.6 350 Meds/Results Medications: Active Medications Generic Name Dose Route Start Last Admin Trade Name Freq PRN Reason Stop Dose Admin Acetaminophen 650 mg 07/11/24 18:52 Acetaminophen 325 Mg Tablet PO Q4H PRN Mild Pain (1-3) or Fever Albuterol/Ipratropium 3 ml 07/12/24 02:00 07/13/24
[2024-07-13] MEDS: AZITHROMYCIN 250 MG TABLET 500 MG PO (09:20)
[2024-07-13] MEDS: BENZONATATE 100 MG CAPSULE PO ×3 (09:25→16:15)
[2024-07-13] MEDS: APIXABAN 5 MG TABLET PO ×2 (09:25→21:19)
[2024-07-13] MEDS: METOPROLOL TARTRATE 50 MG TAB PO ×2 (13:14→21:20)
--- NOTE | 2024-07-13 16:50 | PM.IMPN ---
Progress Note: A&P Assessment and Plan (1) Atrial fibrillation with RVR: Code(s): I48.91 - Unspecified atrial fibrillation Status: Acute (2) Community acquired pneumonia: Code(s): J18.9 - Pneumonia, unspecified organism Status: Acute Plan This is a 68-year-old female who presents to the ER for atrial fibrillation with rapid ventricular rate. She was sent from her doctor's office. She reports some shortness of breath and cough. Denies any chest pain. She been having this symptoms for a week. EKG done at doctor's office showed AFib with RVR and hence was referred to ER for further workup. This is a new diagnosis for her. She was recently at an urgent care at [place] it was given azithromycin Solu Medrol Dosepak Tessalon Perles cough syrup. Patient could not stop coughing and still had shortness of breath and was waking up in the middle night with sweats. Since she did not feel better after the urgent care visits she went to see primary care yesterday. She has been battling this upper respiratory infection for past 10 days. # AFib with RVR - She received 10 mg IV push of Cardizem was started on Cardizem drip. -Echo with EF 55-60% mild to moderate AR no pulmonary hypertension. -Cardiology was consulted. Patient has been placed on metoprolol tartrate 100 mg b.i.d. and advised to follow with a filament tester in a week #PNA - Chest x-ray with airspace opacities in the lower lung zone consistent with atelectasis/scarring versus pneumonia with mild scarring at the lung apices. - CTA performed to rule out PE rule out PE but showed patchy bibasilar pneumonia along with probable minimal chronic interstitial changes. -Today we started on Rocephin and cont azithromycin. -Urine antigens blood cultures. Subjective Date/time seen: 07/13/24 16:50 Interval history: Patient complains of continuous cough. The repeat chest x-ray today shows bilateral lower lung zones consistent with pneumonia. Today we started on ceftriaxone. Cardiology started the patient on metoprolol 100 mg b.i.d. and his heart rate being 100-110. Review of Systems Review of Systems: All systems reviewed & are unremarkable except as noted in HPI and below Constitutional: Constitutional: Reports as per HPI and Reports no additional constitutional complaints Eyes: Eyes: Reports as per HPI and Reports no additional eye complaints ENT: Reports system reviewed and no additional complaints, except as documented and Reports as per HPI Cardiovascular: Cardiovascular: Reports as per HPI and Reports no additional cardiovascular complaints Respiratory: Respiratory: Reports as per HPI and Reports no additional respiratory complaints Gastrointestinal: Gastrointestinal: Reports as per HPI and Reports no additional gastrointestinal complaints Genitourinary: Genitourinary: Reports no additional female genitourinary complaints and Reports as per HPI Musculoskeletal: Musculoskeletal: Reports no additional musculoskeletal complaints and Reports as per HPI Integumentary/Breasts: Skin/Breast: Reports system reviewed and no additional complaints, except as docu and Reports as per HPI Neurologic: Reports system reviewed and no additional complaints, except as documented and Reports as per HPI Psychiatric: Psychiatric: Reports no additional psychiatric complaints and Reports as per HPI Exam Narrative: General: In no acute distress alert and oriented x3 Head: atraumatic, no encephalopathy Eyes: EOMI, PERRLA, sclera clear Neck: supple, 2++ JVD, no adenopathy, trachea midline Cardiac: Normal S1 and S2. Irregular rate and rhythm rate controlled, No murmur, gallops or friction rubs, peripheral pulses intact. Respiratory: Lung sounds coarse bilaterally, no adventitious lung sounds Gastrointestinal: soft, non-distended, non-tender, normoactive bowel sounds. Extremities: moves all extremities well, no edema, good ROM, strength 5/5 Skin: clean, dry, intact. No
[2024-07-14] VITALS (28 sets, daily range): BP systolic 94–105; BP diastolic 50–65; PULSE 88–133; RESP 16–20; TEMP 36.1–37.1; O2SAT 93–98
[2024-07-14] MEDS: IPRATROPIUM 0.5 MG/ALBUTEROL SULFATE 2.5 MG AMPUL.NEB 3 ML INHALATION ×4 (01:55→20:27)
[2024-07-14 04:55] LABS: Basophils Percent Auto 0.3 % (0.2-1.2); Eosinophils Absolute Auto 0.1 K/mm3 (0-0.3); Eosinophils Percent Auto 0.8 % (0-4.4); Hematocrit 37.5 % (37.0-47.0); Hemoglobin 12.5 g/dL (12.0-15.0); Immature Granulocyte Absolute 0.11 K/mm3 (0.00-0.031); Immature Granulocyte Percent A 0.9 % (0-0.5); Lymphocytes Absolute Auto 0.93 K/mm3 (0.9-3.2); Lymphocytes Percent Auto 7.3 % (18.3-44.2); Mean Corpuscular HGB Conc 33.3 g/dl (32-36); Mean Corpuscular Volume 95.9 fl (80-100); Mean Platelet Volume 9.3 fl (7.4-10.4); Monocytes Absolute Auto 0.7 K/mm3 (0.1-0.6); Monocytes Percent Auto 5.7 % (2.6-8.5); Neutrophils Absolute Auto 10.8 K/mm3 (1.3-6.7); Platelet Count Result 292 k/mm3 (150-375); Red Blood Count 3.91 M/mm3 (4.2-5.4); Red Cell Distribution Width 12.6 % (11.5-14.5); White Blood Count 12.7 K/mm3 (4.5-10.0)
[2024-07-14 05:12] LABS: Alanine Aminotransferase 26 U/L (6-35); Albumin Level 3.6 g/dL (3.5-5.1); Alkaline Phosphatase 73 U/L (38-126); Anion Gap 8 mmol/L (4-12); Aspartate Amino Transferase 31 U/L (14-36); Bilirubin,Total 0.6 mg/dL (0.2-1.3); Blood Urea Nitrogen 12 mg/dL (7-17); Calcium 8.6 mg/dL (8.4-10.2); Carbon Dioxide 28 mmol/L (22-30); Chloride 98 mmol/L (98-107); Estimated CRCL calculation 60 ml/min; Estimated Glomerular Filt Rate > 60; Glucose 129 mg/dL (65-110); Potassium 3.8 mmol/L (3.4-5.0); Sodium 134 mmol/L (137-145)
[2024-07-14] MEDS: METOPROLOL TARTRATE 50 MG TAB PO ×3 (05:47→20:41)
[2024-07-14] MEDS: guaiFENesin/DEXTROMETHORPHAN 10 ML UDC PO ×3 (05:48→20:41)
--- NOTE | 2024-07-14 07:46 | PM.PNCARD ---
Progress Note: A&P Assessment and Plan (1) Atrial fibrillation with RVR: Code(s): I48.91 - Unspecified atrial fibrillation Status: Acute Assessment and Plan: Per symptoms she may have had PAF for 2 months or new onset due to pneumonia. [id number] 2. Started on Eliquis. 07/12/24 Echo: EF 55-60%, mod biatrial enlargement, mild-mod TR. Would anticoagulate for 3-4 weeks and rate control, then if still in atrial fib, would cardiovert. On Metoprolol Tartate 25 mg PO q6 hrs and Diltiazem 30 mg PO q6 hrs. Change Metoprolol 50 mg TID. If HR controlled may d/c home from cardiology standpoint and f/u with me in 1 week. (2) Community acquired pneumonia: Code(s): J18.9 - Pneumonia, unspecified organism Status: Acute Assessment and Plan: On antibiotics as per hospitalist. Subjective Date/time seen: 07/14/24 07:46 Interval history: Feeling better. Still has some cough. Denies chest pain or sob. Exam Const: General: cooperative, healthy appearing and comfortable Orientation/consciousness: oriented to person, oriented to place and oriented to time Resp: Auscultation: no crackles, no rales, no rhonchi, no wheezes and diminished lung sounds Other: Coarse breath sounds bilaterally Cardio: Rate: regular rate Rhythm: abnormal rhythm Heart sounds: no murmurs Peripheral pulses: dorsalis pedis present Neuro: General: oriented to person, oriented to place and oriented to time Extrem: Right lower extremity: no edema Left lower extremity: no edema Objective Data Vital Signs Vital Signs: Vital Signs - 24 hr 07/13/24 08:05 07/13/24 08:13 07/13/24 08:14 Temperature Pulse Rate 102 H 106 H Respiratory Rate 20 20 Blood Pressure Pulse Oximetry 96 Oxygen Delivery Room Air Fraction of Inspired Oxygen 07/13/24 11:28 07/13/24 08:00 07/13/24 08:00 Temperature 98.6 F Pulse Rate 93 93 93 Respiratory Rate 16 16 Blood Pressure 105/67 Pulse Oximetry 94 94 Oxygen Delivery Room Air Fraction of Inspired Oxygen 110 07/13/24 10:00 07/13/24 12:00 07/13/24 13:14 Temperature Pulse Rate 102 H 122 H 106 H Respiratory Rate Blood Pressure Pulse Oximetry Oxygen Delivery Fraction of Inspired Oxygen 07/13/24 14:41 07/13/24 12:00 07/13/24 14:00 Temperature Pulse Rate 98 98 Respiratory Rate 20 Blood Pressure Pulse Oximetry Oxygen Delivery Room Air Fraction of Inspired Oxygen 07/13/24 16:00 07/13/24 16:00 07/13/24 16:00 Temperature 98.0 F Pulse Rate 80 84 Respiratory Rate 20 Blood Pressure 98/56 L Pulse Oximetry 95 Oxygen Delivery Room Air Fraction of Inspired Oxygen 07/13/24 18:00 07/13/24 20:00 07/13/24 20:00 Temperature Pulse Rate 119 H 94 92 Respiratory Rate 20 Blood Pressure Pulse Oximetry 95 Oxygen Delivery Room Air Fraction of Inspired Oxygen 110 07/13/24 20:07 07/13/24 20:16 07/13/24 20:15 Temperature 98.9 F Pulse Rate 92 99 97 Respiratory Rate 20 20 18 Blood Pressure 101/54 L Pulse Oximetry 96 Oxygen Delivery Fraction of Inspired Oxygen 07/13/24 21:20 07/13/24 22:00 07/13/24 23:36 Temperature Pulse Rate 112 H 105 H 84 Respiratory Rate Blood Pressure Pulse Oximetry Oxygen Delivery Fraction of Inspired Oxygen 07/13/24 23:37 07/14/24 00:00 07/14/24 01:55 Temperature 98.4 F Pulse Rate 84 91 89 Respiratory Rate 20 18 20 Blood Pressure 99/61 L Pulse Oximetry 96 93 Oxygen Delivery Room Air Fraction of Inspired Oxygen 07/14/24 02:06 07/14/24 02:00 07/14/24 03:53 Temperature Pulse Rate 88 100 110 H Respiratory Rate 20 Blood Pressure Pulse Oximetry Oxygen Delivery Fraction of Inspired Oxygen 07/14/24 03:55 07/14/24 04:00 07/14/24 05:47 Temperature 97 F L Pulse Rate 110 H 97 100 Respiratory Rate 20 16 Blood Pressure 100/65 Pulse Oximetry 93 95 Oxygen Delivery Room Air Fraction
[2024-07-14] MEDS: BENZONATATE 100 MG CAPSULE PO ×3 (08:50→17:45)
[2024-07-14] MEDS: AZITHROMYCIN 250 MG TABLET 500 MG PO (08:50)
[2024-07-14] MEDS: APIXABAN 5 MG TABLET PO ×2 (08:52→20:41)
--- NOTE | 2024-07-14 14:05 | PC.NURSE ---
blood pressure 94/58. metoprolol not given. Nurse Promise made aware, she will notify MD and get further instructions. Rash noted to back. Autumn informed about rash as well.
--- NOTE | 2024-07-14 14:15 | PC.NURSE ---
Pt tachycardic, HR of 120. BP 94/50. Dr. Rush notified. Holding metoprolol dose. Order received for digoxin 125 mcg bid.
--- NOTE | 2024-07-14 14:28 | PM.IMPN ---
Progress Note: A&P Assessment and Plan (1) Atrial fibrillation with RVR: Code(s): I48.91 - Unspecified atrial fibrillation Status: Acute (2) Community acquired pneumonia: Code(s): J18.9 - Pneumonia, unspecified organism Status: Acute Plan This is a 68-year-old female who presents to the ER for atrial fibrillation with rapid ventricular rate. She was sent from her doctor's office. She reports some shortness of breath and cough. Denies any chest pain. She been having this symptoms for a week. EKG done at doctor's office showed AFib with RVR and hence was referred to ER for further workup. This is a new diagnosis for her. She was recently at an urgent care at [place] it was given azithromycin Solu Medrol Dosepak Tessalon Perles cough syrup. Patient could not stop coughing and still had shortness of breath and was waking up in the middle night with sweats. Since she did not feel better after the urgent care visits she went to see primary care yesterday. She has been battling this upper respiratory infection for past 10 days. # AFib with RVR - She received 10 mg IV push of Cardizem was started on Cardizem drip. -Echo with EF 55-60% mild to moderate AR no pulmonary hypertension. -Cardiology was consulted. -Metoprolol tartrate 50mg PO Q 8hrs and digoxin 125 mcg p.o. b.i.d. and advised to follow with a policy change clerk in a week -continue Eliquis 5 mg p.o. b.i.d. #PNA - Chest x-ray with airspace opacities in the lower lung zone consistent with atelectasis/scarring versus pneumonia with mild scarring at the lung apices. - CTA performed to rule out PE rule out PE but showed patchy bibasilar pneumonia along with probable minimal chronic interstitial changes. -Changed to Amox Clav and cont azithromycin. -(-ve )blood cultures. Subjective Date/time seen: 07/14/24 14:28 Interval history: Patient still complains of cough but better than yesterday. Patient is switched to oral antibiotic. Cardiology changed her medication added digoxin 125 mcg p.o. b.i.d. Review of Systems Review of Systems: All systems reviewed & are unremarkable except as noted in HPI and below Constitutional: Constitutional: Reports as per HPI and Reports no additional constitutional complaints Eyes: Eyes: Reports as per HPI and Reports no additional eye complaints ENT: Reports system reviewed and no additional complaints, except as documented and Reports as per HPI Cardiovascular: Cardiovascular: Reports as per HPI and Reports no additional cardiovascular complaints Respiratory: Respiratory: Reports as per HPI and Reports no additional respiratory complaints Gastrointestinal: Gastrointestinal: Reports as per HPI and Reports no additional gastrointestinal complaints Genitourinary: Genitourinary: Reports no additional female genitourinary complaints and Reports as per HPI Musculoskeletal: Musculoskeletal: Reports no additional musculoskeletal complaints and Reports as per HPI Integumentary/Breasts: Skin/Breast: Reports system reviewed and no additional complaints, except as docu and Reports as per HPI Neurologic: Reports system reviewed and no additional complaints, except as documented and Reports as per HPI Psychiatric: Psychiatric: Reports no additional psychiatric complaints and Reports as per HPI Exam Narrative: General: In no acute distress alert and oriented x3 Head: atraumatic, no encephalopathy Eyes: EOMI, PERRLA, sclera clear Neck: supple, 2++ JVD, no adenopathy, trachea midline Cardiac: Normal S1 and S2. Irregular rate and rhythm rate controlled, No murmur, gallops or friction rubs, peripheral pulses intact. Respiratory: Lung sounds coarse bilaterally, no adventitious lung sounds Gastrointestinal: soft, non-distended, non-tender, normoactive bowel sounds. Extremities: moves all extremities well, no edema, good ROM, strength 5/5 Skin: clean, dry, intact. No wounds or lesions. Neuro: Alert and oriented x4, cranial ne
[2024-07-14] MEDS: DIGOXIN TAB 125 MCG TABLET PO (15:06)
--- NOTE | 2024-07-14 19:45 | PC.NURSE ---
Dr. Rush notified of pt's tachycardia of 188 up to the bathroom. Order received to give metoprolol 50 mg now. Blood pressure is 126/68.
[2024-07-14] MEDS: diphenhydrAMINE HCl CAP 25 MG CAPSULE PO (20:42)
[2024-07-15] VITALS (9 sets, daily range): BP systolic 103–106; BP diastolic 61–64; PULSE 87–107; RESP 16–18; TEMP 36.3–36.8; O2SAT 97–99
[2024-07-15] MEDS: IPRATROPIUM 0.5 MG/ALBUTEROL SULFATE 2.5 MG AMPUL.NEB 3 ML INHALATION ×2 (02:01→08:17)
[2024-07-15 04:35] LABS: Basophils Absolute Auto 0.1 K/mm3 (0.0-0.1); Basophils Percent Auto 0.5 % (0.2-1.2); Eosinophils Absolute Auto 0.3 K/mm3 (0-0.3); Eosinophils Percent Auto 2.6 % (0-4.4); Hematocrit 37.6 % (37.0-47.0); Hemoglobin 12.7 g/dL (12.0-15.0); Immature Granulocyte Absolute 0.09 K/mm3 (0.00-0.031); Immature Granulocyte Percent A 0.9 % (0-0.5); Lymphocytes Absolute Auto 1.04 K/mm3 (0.9-3.2); Lymphocytes Percent Auto 10.7 % (18.3-44.2); Mean Corpuscular HGB Conc 33.8 g/dl (32-36); Mean Corpuscular Hemoglobin 32.2 pg (26-34); Mean Corpuscular Volume 95.4 fl (80-100); Monocytes Absolute Auto 0.7 K/mm3 (0.1-0.6); Monocytes Percent Auto 6.7 % (2.6-8.5); Neutrophils Absolute Auto 7.7 K/mm3 (1.3-6.7); Neutrophils Percent Auto 78.6 % (45.5-73.1); Platelet Count Result 309 k/mm3 (150-375); Red Blood Count 3.94 M/mm3 (4.2-5.4); Red Cell Distribution Width 12.5 % (11.5-14.5); White Blood Count 9.8 K/mm3 (4.5-10.0)
[2024-07-15 04:44] LABS: Alanine Aminotransferase 25 U/L (6-35); Albumin Level 3.5 g/dL (3.5-5.1); Alkaline Phosphatase 72 U/L (38-126); Anion Gap 9 mmol/L (4-12); Aspartate Amino Transferase 25 U/L (14-36); Bilirubin,Total 0.3 mg/dL (0.2-1.3); Blood Urea Nitrogen 13 mg/dL (7-17); Calcium 8.7 mg/dL (8.4-10.2); Carbon Dioxide 26 mmol/L (22-30); Chloride 101 mmol/L (98-107); Estimated CRCL calculation 60 ml/min; Estimated Glomerular Filt Rate > 60; Glucose 108 mg/dL (65-110); Potassium 3.7 mmol/L (3.4-5.0); Sodium 136 mmol/L (137-145)
[2024-07-15] MEDS: guaiFENesin/DEXTROMETHORPHAN 10 ML UDC PO ×2 (06:44→10:29)
[2024-07-15] MEDS: METOPROLOL TARTRATE 50 MG TAB PO (06:44)
--- NOTE | 2024-07-15 07:50 | PM.PNCARD ---
Progress Note: A&P Assessment and Plan (1) Atrial fibrillation with RVR: Code(s): I48.91 - Unspecified atrial fibrillation Status: Acute Assessment and Plan: Per symptoms she may have had PAF for 2 months or new onset due to pneumonia. [id number] 2. Started on Eliquis. 07/12/24 Echo: EF 55-60%, mod biatrial enlargement, mild-mod TR. Would anticoagulate for 3-4 weeks and rate control, then if still in atrial fib, would cardiovert. On Metoprolol Tartate 25 mg PO q6 hrs and Diltiazem 30 mg PO q6 hrs. Change Metoprolol 50 mg TID. She could not take TID dosing due to low BP. Decrease Metoprolol 50 mg BID. Started Digoxin 125 mcg BID 07/14/24. If HR controlled may d/c home from cardiology standpoint and f/u with me in 1 week. (2) Community acquired pneumonia: Code(s): J18.9 - Pneumonia, unspecified organism Status: Acute Assessment and Plan: On antibiotics as per hospitalist. Subjective Date/time seen: 07/15/24 07:50 Interval history: Cough improving. Denies chest pain or sob. Exam Const: General: cooperative, healthy appearing and comfortable Orientation/consciousness: oriented to person, oriented to place and oriented to time Resp: Auscultation: no crackles, no rales, no rhonchi, no wheezes and diminished lung sounds Other: Coarse breath sounds bilaterally Cardio: Rate: tachycardic Rhythm: abnormal rhythm Heart sounds: no murmurs Peripheral pulses: dorsalis pedis present Neuro: General: oriented to person, oriented to place and oriented to time Extrem: Right lower extremity: no edema Left lower extremity: no edema Objective Data Vital Signs Vital Signs: Vital Signs - 24 hr 07/14/24 08:00 07/14/24 08:00 07/14/24 08:09 Temperature Pulse Rate 99 99 100 Respiratory Rate 20 20 20 Blood Pressure Pulse Oximetry 97 Oxygen Delivery Room Air 07/14/24 08:00 07/14/24 08:00 07/14/24 08:00 Temperature 98.7 F Pulse Rate 88 100 Respiratory Rate 20 Blood Pressure 95/65 L Pulse Oximetry 97 Oxygen Delivery Room Air 07/14/24 10:00 07/14/24 11:50 07/14/24 14:18 Temperature 98.5 F Pulse Rate 104 H 114 H 94 Respiratory Rate 20 20 Blood Pressure 99/51 L Pulse Oximetry 98 Oxygen Delivery 07/14/24 14:05 07/14/24 14:30 07/14/24 15:06 Temperature Pulse Rate 112 H 121 H 130 H Respiratory Rate 20 Blood Pressure 94/58 L Pulse Oximetry Oxygen Delivery 07/14/24 16:00 07/14/24 12:00 07/14/24 14:00 Temperature 98.3 F Pulse Rate 129 H 118 H 122 H Respiratory Rate 20 Blood Pressure 99/55 L Pulse Oximetry 98 Oxygen Delivery 07/14/24 16:00 07/14/24 18:00 07/14/24 20:02 Temperature 97.7 F Pulse Rate 133 H 112 H 102 H Respiratory Rate 18 Blood Pressure 105/50 L Pulse Oximetry 96 Oxygen Delivery 07/14/24 20:00 07/14/24 20:00 07/14/24 20:29 Temperature Pulse Rate 104 H 102 H Respiratory Rate 18 Blood Pressure Pulse Oximetry 96 95 Oxygen Delivery Room Air Room Air 07/14/24 20:29 07/14/24 20:41 07/14/24 22:00 Temperature Pulse Rate 99 102 H 102 H Respiratory Rate 20 Blood Pressure Pulse Oximetry Oxygen Delivery 07/14/24 23:20 07/15/24 00:00 07/15/24 02:03 Temperature 98.2 F Pulse Rate 96 92 105 H Respiratory Rate 18 18 Blood Pressure 106/64 Pulse Oximetry 97 Oxygen Delivery 07/14/24 20:39 07/15/24 03:38 07/15/24 06:00 Temperature Pulse Rate 102 H 99 102 H Respiratory Rate 20 Blood Pressure Pulse Oximetry Oxygen Delivery 07/15/24 06:44 Temperature Pulse Rate 102 H Respiratory Rate Blood Pressure Pulse Oximetry Oxygen Delivery Intake/Output Intake/Output: Intake & Output 07/12/24 07/13/24 07/14/24 07/15/24 23:59 23:59 23:59 23:59 Intake Total 1014.4 1000 910 330 Output Total 2400 500 Balance -1385.6 500 910 330 Meds/Results Medications: Active Medications Generic Name Dose Route S
[2024-07-15] MEDS: DIGOXIN TAB 125 MCG TABLET PO (08:17)
[2024-07-15] MEDS: APIXABAN 5 MG TABLET PO (08:18)
[2024-07-15] MEDS: BENZONATATE 100 MG CAPSULE PO (08:18)
[2024-07-15] MEDS: AZITHROMYCIN 250 MG TABLET 500 MG PO (08:18)
[2024-07-15] MEDS: AMOXICILLIN/CLAVULANATE K 875-125 MG TAB 1 TABLET PO (10:29)
--- NOTE | 2024-07-15 10:36 | PM.DS ---
DS: Admitting Diagnosis Discharge Date 07/15/2024 Admitting Diagnosis Atrial fibrillation with RVR DS: Discharge Diagnosis Discharge Diagnosis (1) Atrial fibrillation with RVR: Code(s): I48.91 - Unspecified atrial fibrillation Status: Acute (2) Community acquired pneumonia: Code(s): J18.9 - Pneumonia, unspecified organism Status: Acute Plan This is a 68-year-old female who presents to the ER for atrial fibrillation with rapid ventricular rate. She was sent from her doctor's office. She reports some shortness of breath and cough. Denies any chest pain. She been having this symptoms for a week. EKG done at doctor's office showed AFib with RVR and hence was referred to ER for further workup. This is a new diagnosis for her. She was recently at an urgent care at [place] it was given azithromycin Solu Medrol Dosepak Tessalon Perles cough syrup. Patient could not stop coughing and still had shortness of breath and was waking up in the middle night with sweats. Since she did not feel better after the urgent care visits she went to see primary care yesterday. She has been battling this upper respiratory infection for past 10 days. # AFib with RVR - She received 10 mg IV push of Cardizem was started on Cardizem drip. -Echo with EF 55-60% mild to moderate AR no pulmonary hypertension. -Cardiology was consulted. #PNA - Chest x-ray with airspace opacities in the lower lung zone consistent with atelectasis/scarring versus pneumonia with mild scarring at the lung apices. - CTA performed to rule out PE rule out PE but showed patchy bibasilar pneumonia along with probable minimal chronic interstitial changes. -Changed to Amox Clav and cont azithromycin. -(-ve )blood cultures. DS: Summary Hospital Course Hospital Course: This is a 68-year-old female with a significant past medical history of anxiety, breast cancer, Raynaud's phenomenon, Sjogren syndrome, vitamin B12 deficiency presented to the hospital with palpitations. She was recently at an urgent care in [facility] and was prescribed azithromycin, Solu-Medrol Dosepak, Tessalon Perles, promethazine cough syrup, and Breztri inhaler. Patient states that she could not stop coughing and still had shortness of breath and was waking up in the middle night with sweats. Since she was not feeling better after her urgent care visit she initially went to her primary care office today for additional workup. She has been battling this upper respiratory infection for 10 days. She was found to be in AFib with RVR with a rate of 150 and was sent to the hospital for further workup. Workup in the hospital included a chest x-ray which showed airspace opacities in the lower lung zones consistent with atelectasis versus pneumonia, mild scarring at the lung apices. Initial labs showed a white blood cell count of 18.5, sodium 134, chloride 96, AST 43, troponin was negative, lipase 126, TSH 2.330. EKG here at the hospital showed AFib with RVR with a rate of 106, QTC 423. Patient was given 10 mg IV push of Cardizem and started on Cardizem drip at 5 mg/hour. 07/15/2024: Cardiology changed Metoprolol 50 mg TID. She could not take TID dosing due to low BP. Decrease Metoprolol 50 mg BID.Started Digoxin 125 mcg BID 07/14/24. If HR controlled may d/c home from cardiology standpoint and f/u with me in 1 week. We discharged her with amoxicillin clavulanate for 5 days, Tessalon Perles p.r.n. for cough. Patient continues to take apixaban 5 mg p.o. b.i.d.. Patient needs to see yard associate and PCP within a week for medical reconciliation. Time Spent with Patient Time attestation: Total time spent providing and/or coordinating discharge services:45mins Exam Narrative: General: In no acute distress alert and oriented x3 Head: atraumatic, no encephalopathy Eyes: EOMI, PERRLA, sclera clear Neck: supple, 2++ JVD, no adenopathy, trachea midline Cardiac: Normal S1 and S2. Irregular
[2024-07-16 17:04] LABS: Pneumococcal Antigen Urine NOT DETECTED
== END 2024-07-15 12:25 | disposition home or self-care (01) | DRG 308 ==
LOC: ANHED 18:02 → ANHIMU 20:31
PROVIDERS: Nurse Practitioner Acute Care; Physician Assistant; Admitting Provider Internal Medicine; Emergency Provider Family Medicine; PCP Family Medicine; Visit Provider General Practice
DX: I48.91 Unspecified atrial fibrillation (principal); J18.9 Pneumonia, unspecified organism; I73.00 Raynaud's syndrome without gangrene; E53.8 Deficiency of other specified B group vitamins; M35.00 Sjogren syndrome, unspecified; F41.9 Anxiety disorder, unspecified; Z20.822 Contact with and (suspected) exposure to COVID-19; Z85.3 Personal history of malignant neoplasm of breast
CPT/HCPCS: 36415; 71045; 71275; 80053; 83690; 83735; 84443; 84484; 85025; 85610; 85730; 87040; 87449; 87637; 87641; 87899; 93005; 93306; 94640; 96361; 96374; 99285; A9270; J0696; J1940; J2405; J7030; Q9967

== ENCOUNTER 2024-08-11 12:35 | Outpatient (CLI) | payer MEDICARE, SELFPAY ==
--- NOTE | ~2024-08-11 | XR_ITS ---
XR chest 2V 08/11/2024 12:46 Indication: Chronic cough Procedure: 2 view chest Comparison: No prior studies for comparison. Findings: Heart size normal. No focal air space disease, pulmonary edema, pleural effusion or suspect ed pneumothorax. Chronic apical pleural thickening/scarring. There are loose bodies adjacent to the r ight shoulder joint. The lungs are hyperinflated which is consistent with, but not diagnostic of timber inspector lo obstructive pulmonary disease. Impression: 1: No acute cardiopulmonary disease. Reviewed, dictated and finalized at location B. Impression: 1: No acute cardiopulmonary disease.
== END 2024-08-11 12:36 | disposition home or self-care (01) ==
LOC: MICIMG 12:36
PROVIDERS: PCP Family Medicine; Visit Provider Nurse Practitioner Family
DX: R05.3 Chronic cough (principal)
CPT/HCPCS: 71046

== ENCOUNTER 2024-08-17 09:05 | Outpatient (CLI) | payer MEDICARE, SELFPAY ==
--- NOTE | 2024-08-17 11:22 | P.PCNPFT_ITS ---
PFT Procedure Performed PFT Procedure Performed Spirometry with Pre/Post Bronchodilator Plethysmography (Lung Vol) Diffusing Cap (DLCO) Flow Vol Loop PFT Interpretation This is a pulmonary function test with pre and post-bronchodilator spirometry, plethysmography and diffusing capacity. The test was performed and results interpreted in accordance with the 2019 and 2005 ATS/ERS Task Force guidelines respectively using the Global Lung Function Initiative-2012 reference equations. Patient demonstrated good effort and cooperation. Reproducibility criteria were met. The quality of the pre bronchodilator spirometry maneuver was Grade C and post bronchodilator spirometry maneuver was Grade C. Of note, the patient had good effort but struggled with requirements of spirometry despite good coaching and several attempts. Findings: Spirometry: The contour the inspiratory and expiratory flow tracing are normal. The pre bronchodilator FVC is 3.74 L, 110% predicted. The pre bronchodilator FEV1 is 2.61 L, 99% predicted. The pre bronchodilator FEV1: FVC ratio 70%. The post bronchodilator FVC is 3.57 L, representing a 5% decrease. The post bronchodilator FEV1 is 2.50 L, representing a 4% decrease. The post bronchodilator FEV1: FVC ratio 70%. Plethysmography: The total lung capacity is 6.64 L, 117% predicted. The functional residual capacity is 3.03 L, 93% predicted. The residual volume is 2.90 L, 124% predicted. Diffusing capacity: The diffusing capacity unadjusted for hemoglobin and carboxyhemoglobin is 17.3, 77% predicted. The diffusing capacity adjusted for alveolar volume is 3.89, 94% predicted. Impression: The spirometry is normal without evidence of an obstructive abn ormality. There is no significant improvement after inhaling a single dose of albuterol. The lung volumes are normal. The diffusing capacity is normal. There are no prior studies for comparison
== END 2024-08-17 09:06 | disposition home or self-care (01) ==
PROVIDERS: PCP Family Medicine; Visit Provider Physician Assistant
DX: R06.02 Shortness of breath (principal)
CPT/HCPCS: 94060; 94726; 94729

== ENCOUNTER 2024-08-24 10:02 | Outpatient (CLI) | payer MEDICARE, SELFPAY ==
--- NOTE | ~2024-08-24 | NM_ITS ---
EXAMINATION: NM aparna stress w perfusion DATE: 08/24/2024 14:21 INDICATION: Unspecified atrial fibrillation. TECHNIQUE: Rest images were obtained following intravenous administration of 9 mCi Tc99m tetrofosmin (Myoview). The patient was infused intravenously with Lexiscan (regadenoson). Then, 29.2 mCi Tc99m te trofosmin (Myoview) was administered intravenously, and stress images were obtained. Data was reconst ructed into short axis and horizontal and vertical long axis SPECT images. Gated SPECT images were al so obtained. COMPARISON: None. FINDINGS: There is no definite reversible or fixed perfusion abnormality to suggest ischemia or infar ction. There is no segmental wall motion abnormality. Left ventricular ejection fraction measures > 70%. IMPRESSION: 1. No definite ischemia or infarct. 2. Normal left ventricular ejection fraction measuring >70%. Reviewed, dictated and finalized at location A.
--- NOTE | 2024-08-24 10:59 | EST_ITS ---
Patient Info Name: Beatriz Courtney Age: 68 years : 1955 Gender: Female Ht: 68 in Wt: 145 lbs BSA: 1.78 m2 HR: 74 bpm BP: 131 / 77 mmHg Heart Rhythm: Atrial Fibrillation Exam Date: 08/24/2024 11:07 AM Exam Location: Echo Lab Patient Status: Outpatient Admit Date: 08/24/2024 Staff Ordering Physician: Dino Rush DO Attending Provider: Dino Rush DO Exercise Technologist: Sofya Pack CT Exercise Physician: Dino Rush DO Exam Type: CA stress aparna w NM Study Info Indications I48.1 - Persistent atrial fibrillation A regadenoson stress test was performed. Summary 1. 1. Negative lexiscan stress test for ischemic ST changes by ECG criteria. 2. 2. Stable hemodynamics throughout the test. 3. 3. Nuclear scan to follow and will be reported separately. Please correlate with it. 4. 4. Patient informed of the above results. Protocol: Lexiscan Stress ECG Details Stage: REST Duration (min): 0 min : 53 sec HR (bpm): 83 SBP (mmHg): 131 DBP (mmHg): 77 Stage: REST Duration (min): 14 min : 31 sec HR (bpm): 77 SBP (mmHg): 131 DBP (mmHg): 77 Stage: STAGE 1 Duration (min): 1 min : 0 sec HR (bpm): 92 SBP (mmHg): 135 DBP (mmHg): 72 Stage: RECOVERY Duration (min): 1 min : 0 sec HR (bpm): 94 SBP (mmHg): 135 DBP (mmHg): 72 Stage: RECOVERY Duration (min): 2 min : 0 sec HR (bpm): 105 SBP (mmHg): 135 DBP (mmHg): 72 Stage: RECOVERY Duration (min): 2 min : 54 sec HR (bpm): 98 SBP (mmHg): 151 DBP (mmHg): 76 Rest HR: 77 bpm Peak HR: 112 bpm Rest Sys BP: 131 mmHg Peak Sys BP: 151 mmHg Max Pred HR: 153 bpm % Max Pred HR: 73 % Target HR: 130 bpm Max RPP: 16,912 bpm*mmHg Termination Reason: Completed protocol Cardiac Symptoms: Shortness of breath Total Time: 1 min : 0 sec Rest Moore BP: 77 mmHg Peak Moore BP: 76 mmHg Total Dose: 0.4 mg Resting ECG Atrial fibrillation. Stress ECG No ST changes. Arrhythmias None. Report Signatures
== END 2024-08-24 10:03 | disposition home or self-care (01) ==
PROVIDERS: PCP Family Medicine; Visit Provider Internal Medicine Cardiovascular Disease
DX: I48.91 Unspecified atrial fibrillation (principal)
CPT/HCPCS: 78452; 93017; A9502; J2785

== ENCOUNTER 2024-09-29 08:33 | Outpatient (CLI) | payer MEDICARE, SELFPAY ==
--- NOTE | ~2024-09-29 | MM_ITS ---
EXAMINATION: MM screening miguelangel BI w valerie HISTORY: Screening mammogram TECHNIQUE: Craniocaudal and mediolateral oblique 3-D tomosynthesis images were obtained and synthetic 2-D images were generated. CAD analysis was submitted and interpreted. COMPARISON: 06/08/2023, 06/06/2022, 05/11/2021 BREAST PARENCHYMAL COMPOSITION:Not Dense. There are scattered areas of fibroglandular density. FINDINGS: Stable postoperative change with dystrophic calcification at the upper, outer right breast. No suspicious mass, calcification, or architectural distortion are identified in either breast to gonzales ggest malignancy. There has been no suspicious interval change. IMPRESSION: No mammographic evidence of malignancy. Recommend routine screening mammography in one year. BI-RADS Category 2: Benign finding(s). Reviewed, dictated and finalized at [facility]. 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
== END 2024-09-29 08:34 | disposition home or self-care (01) ==
PROVIDERS: PCP Family Medicine; Visit Provider Obstetrics & Gynecology
DX: Z12.31 Encounter for screening mammogram for malignant neoplasm of breast (principal)
CPT/HCPCS: 77063; 77067

== ENCOUNTER 2025-02-13 07:46 | Outpatient (CLI) | payer MEDICARE, SELFPAY ==
--- NOTE | ~2025-02-13 | US_ITS ---
US abdomen limited INDICATION: Liver cysts PROCEDURE: Realtime right upper abdominal ultrasound. COMPARISON: No prior studies for comparison. FINDINGS: The pancreas is normal without focal mass or pancreatic ductal dilation. There is a 1.9 cm cyst of the liver. No solid liver masses. Liver echotexture is normal. There is normal directional flow in the portal vein. The gallbladder is normal without stones, gallbladder wall thickening or pericholecystic fluid. Comm on bile duct measures 2 mm. No sonographic Coleman's sign. IMPRESSION: 1: Liver cyst measuring 1.9 cm. Reviewed, dictated and finalized at location A.
== END 2025-02-13 07:47 | disposition home or self-care (01) ==
PROVIDERS: PCP Family Medicine; Visit Provider Nurse Practitioner Family
DX: K76.89 Other specified diseases of liver (principal)
CPT/HCPCS: 76705

== ENCOUNTER 2025-02-13 08:32 | Outpatient (CLI) | payer MEDICARE, SELFPAY ==
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
== END 2025-02-13 08:33 | disposition home or self-care (01) ==
LOC: MICIMG 08:32
PROVIDERS: PCP Family Medicine; Visit Provider Psychiatry & Neurology Neurology
DX: I48.91 Unspecified atrial fibrillation (principal); Z87.828 Personal history of other (healed) physical injury and trauma; G31.84 Mild cognitive impairment of uncertain or unknown etiology; J32.9 Chronic sinusitis, unspecified
CPT/HCPCS: 70551

== ENCOUNTER 2025-02-15 10:17 | Outpatient (CLI) | payer MEDICARE, SELFPAY ==
--- NOTE | ~2025-02-15 | XR_ITS ---
XR chest 2V 02/15/2025 10:49 Indication: Cough Procedure: 2 view chest Comparison: 08/11/2024 Findings: Heart size normal. Bibasilar airspace disease, best seen on lateral view, atelectasis versu s pneumonia. No pleural effusion, edema or pneumothorax. Chronic apical pleural thickening/scarring. Impression: 1: Bibasilar infiltrates, atelectasis versus pneumonia. Reviewed, dictated and finalized at location A. Impression: 1: Bibasilar infiltrates, atelectasis versus pneumonia.
== END 2025-02-15 10:18 | disposition home or self-care (01) ==
LOC: MICIMG 10:19
PROVIDERS: PCP Family Medicine; Visit Provider Nurse Practitioner Adult Health
DX: R09.89 Other specified symptoms and signs involving the circulatory and respiratory systems (principal); R91.8 Other nonspecific abnormal finding of lung field
CPT/HCPCS: 71046

== ENCOUNTER 2025-03-13 10:06 | Outpatient (CLI) | payer MEDICARE, SELFPAY ==
--- NOTE | ~2025-03-13 | XR_ITS ---
CHEST RADIOGRAPH, PA AND LATERAL CLINICAL HISTORY: J18.9 - Pneumonia, unspecified organism . COMPARISON: 02/15/2025 TECHNIQUE: PA and lateral views of the chest. FINDINGS The cardiomediastinal silhouette is unremarkable. The lungs are clear. Visualized osseous structures and soft tissues are unremarkable. IMPRESSION: No focal infiltrate or effusion. Reviewed, dictated and finalized at location A.
== END 2025-03-13 10:07 | disposition home or self-care (01) ==
LOC: MICIMG 10:07
PROVIDERS: PCP Family Medicine; Visit Provider Physician Assistant
DX: J18.9 Pneumonia, unspecified organism (principal)
CPT/HCPCS: 71046

== ENCOUNTER 2025-04-12 13:21 | Outpatient (CLI) | payer MEDICARE, SELFPAY ==
--- NOTE | ~2025-04-12 | CT_ITS ---
EXAMINATION: CT sinus wo con DATE: 04/12/2025 13:37 INDICATION: Chronic sinusitis TECHNIQUE: Computed tomography (CT) of the paranasal sinuses was performed without intravenous contra st. The dose-length product was 277.35 mGy-cm. Automated exposure control and iterative reconstructio n technique were employed. COMPARISON: None FINDINGS: No significant mucosal thickening. No air-fluid levels. Rightward nasal septal deviation. O stiomeatal units are patent. Mastoids are pneumatized. No midline shift. IMPRESSION: 1. No significant sinus disease. Reviewed, dictated and finalized at location A.
== END 2025-04-12 13:22 | disposition home or self-care (01) ==
LOC: MICIMG 13:25
PROVIDERS: PCP Family Medicine; Visit Provider Otolaryngology Otolaryngology/Facial Plastic Surgery
DX: J32.9 Chronic sinusitis, unspecified (principal)
CPT/HCPCS: 70486

== ENCOUNTER 2025-06-27 02:13 | Day surgery (SDC) | payer MEDICARE, SELFPAY ==
[2025-06-13 10:02] VITALS: BMI 22.8
--- NOTE | 2025-06-13 10:20 | PC.NURSE ---
Spoke with patient regarding medication Pradaxa. Patient verbalizes understanding that the last dose is to be taken on 06/24/25 and the Endoscopist will instruct them when to restart after the procedure.
--- OUTSIDE RECORDS SUMMARY | 2025-06-27 02:15 | XMS_ITS | Encounter Summary ---
Author Organization [facility] Address [address] [place] [address] Care Team Providers Care Printed Circuit Layout Taper Name Role Phone Frankie Weinstein MD Primary Care Provider [phone] Encounter Details Date Type Department Care Team (Late st Contact Info) Description 12/23/2019 Lab Requisition [facility] DermPath Lab [address] [place] [address] Reji Gomez MD [address] [place] [address] Social History Tobacco Use Types Packs/Day Years Used Date Smoking Tobacco: Never Assessed Comments Unknown Sex and Gender Information Value Date Recorded Sex Assigned at Not on file Legal Sex Female 8:49 AM REFINED SYRUP OPERATOR Gender Identity Not on file Sexual Orientation Not on file documented as of this encounter Plan of Treatment Not on file documented as of this encounter Procedures Procedure Name Priority Date/Time Associated Diagnosis Comments DERMATOPATHOLOGY Routine 12/22/2019 12:0 0 AM REFINED SYRUP OPERATOR documented in this encounter Results * DERMATOPATHOLOGY (12/22/2019 12:00 AM REFINED SYRUP OPERATOR) Case Report Dermatopathology Report Case: [id number] Authorizing Provider: Reji Gomez MD Collected: 12/22/2019 12:00 AM Ordering Location: [facility] Derm[facility] Lab Received: 12/23/2019 09:12 AM Pathologist: Kera Lemus MD Specimen: Skin, right upper nasal wall 0 12:54 PM REFINED SYRUP OPERATOR DERMATOPATHOLOGY LABORATORY Final Diagnosis Specimen A. SKIN, right upper nasal wall: SEBORRHEIC KERATOSIS, INFLAMED (L82.0) 0 12:54 PM REFINED SYRUP OPERATOR DERMATOPATHOLOGY LABORATORY at 1254 REFINED SYRUP OPERATOR Clinical History R/O neoplasm. 0 12:54 PM [facility] DERMATOPATHOLOGY LABORATORY Gross Description Specimen A: Received is one formalin filled container labeled with the patient's name and designated right upper nasal wall. The specimen consists of a shave biopsy measuring [id number]. Jar 0. 0 12:54 PM [facility] DERMATOPATHOLOGY LABORATORY Microscopic Description Specimen A. SKIN, right upper nasal wall: There is hyperkeratosis, parakeratosis, papillomatosis, and acanthosis of the epidermis. 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 0 12:54 PM [facility] DERMATOPATHOLOGY LABORATORY Disclaimer An external and internal positive and negative controls are appropriate for the histochemical, immunohistochemical and immunofluorescence stain(s) in this case (if any), except where stated explicitly. The performance characteristics of the stain(s) cited in this report were developed and its performance characteristic determined by the Dermatopathology Laboratory at [facility], directed by Dr. Henny Pond. These tests need not be, and therefore are not, approved by the [place] Food and Drug Administration. The tests are used for clinical purposes. Billing Codes Specimen Charges Stain Charges 16692 1 0 12:54 PM [facility] DERMATOPATHOLOGY LABORATORY Embedded Images 0 12:54 PM [facility] DERMATOPATHOLOGY LABORATORY Pathology/Cytolog y TISSUE SPECIMEN FROM SKIN / Unknown 12/22/2019 12/23/2019 9:12 AM REFINED SYRUP OPERATOR Reji Gomez MD LAB - PATHOLOGY/CYTOLOGY ORDERAB LES Final Result DERMATOPATHOLOGY LABORATORY [facility] - Department of Dermatology [facility] [facility], 5th [place] [address], [facility] [phone] documented in this encounter Visit Diagnoses Not on filedocumented in this encounter Care Teams Printed Circuit Layout Taper Relationship Specialty Start Date End Date Frankie Weinstein MD [address] [place] [id number] PCP - General 12/23/19 documented as of this encounter
--- OUTSIDE RECORDS SUMMARY | 2025-06-27 02:15 | XMS_ITS | Encounter Summary ---
Author Organization [facility] Address [address] [place] [address] Care Team Providers Care Back Tacker Name Role Phone Frankie Weinstein MD Primary Care Provider [phone] Encounter Details Date Type Department Care Team (Late st Contact Info) Description 02/04/2024 Lab Requisition [facility] - DermPath Lab [address] [facility] [place] [address] Reji Gomez MD [address] [place] [address] Social History Tobacco Use Types Packs/Day Years Used Date Smoking Tobacco: Never Assessed Comments Unknown Sex and Gender Information Value Date Recorded Sex Assigned at Not on file Legal Sex Female 8:49 AM SHOEBLACK Gender Identity Not on file Sexual Orientation Not on file documented as of this encounter Plan of Treatment Not on file documented as of this encounter Procedures Procedure Name Priority Date/Time Associated Diagnosis Comments DERMATOPATHOLOGY Routine 02/03/2024 3:33 AM CDT documented in this encounter Results * DERMATOPATHOLOGY (02/03/2024 3:33 AM CDT) Case Report Dermatopathology Report Case: [id number] Authorizing Provider: Reji Gomez MD Collected: 02/03/2024 03:33 AM Ordering Location: [facility] - Received: 02/05/2024 06:27 AM DermPath Lab Pathologist: Ofelia Rasmussen MD Specimen: Skin, mid nasal bridge 5:07 PM CDT DERMATOPATHOLOGY LABORATORY Final Diagnosis Specimen A. SKIN, mid nasal bridge: SEBACEOUS NEOPLASM, SUPERFICIAL PORTIONS OF (D48.5) (see microscopic description and comment) 4 5:07 PM T DERMATOPATHOLOGY LABORATORY at 1707 CDT Clinical History R/O BCC 4 5:07 PM [facility] DERMATOPATHOLOGY LABORATORY Gross Description Specimen A: Received is one formalin filled container labeled with the patient's name and designated mid nasal bridge. The specimen consists of a shave biopsy measuring 4x3x2 mm. Jar 0. 4 5:07 PM [facility] DERMATOPATHOLOGY LABORATORY Microscopic Description Specimen A. SKIN, mid nasal bridge: Sections show proliferation primarily basaloid cells with scattered sebocytes extending from the epidermis. There are rare mitotic findings and apoptotic cells. The base of the lesion is not visualized. 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 Conservative excision is recommended for further diagnosis and removal. Sebaceous neoplasms can be sporadic or associated with Malick-Joel Syndrome. While mismatch repair protein immunohistochemistr y can be performed to identify those patients who would benefit from genetic consultation, the literature suggests a targeted approach to screening that incorporates clinical parameters to identify those individuals that would benefit from the analysis (see provided references below). This case was also reviewed by Dr. Liliya Cox who agrees with the diagnosis. References: 1. Gopi PRECIADO, et al. A clinical scoring system to identify patients with sebaceous neoplasms at risk for the Malick-Joel variant of Bynum Syndrome. Ora Med. 2014 Jul;16(9):711-6. 2. Shubham BARNES et al. Appropriate use criteria in dermatopathology: Initial recommendations from the [place] Society of Dermatopathology. J Cutan Pathol. 2018 Jun;45(8):563-580. 5:07 PM T DERMATOPATHOLOGY LABORATORY Disclaimer An external and internal positive and negative controls are appropriate for the histochemical, immunohistochemical and immunofluorescence stain(s) in this case (if any), except where stated explicitly. The performance characteristics of the stain(s) cited in this report were developed and its performance characteristic determined by the Dermatopathology Laboratory at [facility], directed by Dr. Henny Pond. These tests need not be, and therefore are not, approved by the [place] Food and Drug Administration. The tests are used for clinical purposes. Billing Codes Specimen Charges Stain Charges 13309 1 4 5:07 PM CDT DERMATOPATHOLOGY LABORATORY Embedded Images 4 5:07 PM CDT DERMATOPATHOLOGY LABORATORY Pathology/Cytolo gy TISSUE SPECIMEN FROM SKIN / Unknown 02/03/2024 3:33 AM CDT 02/05/2024 6:27 AM CDT Reji Gomez MD LAB - PATHOLOGY/CYTOLOGY ORDERAB LES Final Result DERMATOPATHOLOGY LABORATORY [facility] - Department of Dermatology [facility] [address] [place] [address], [address] [phone] documented in this encounter Visit Diagnoses Not on filedocumented in this encounter Care Teams Back Tacker Relationship Specialty Start Date End Date Frankie Weinstein MD [address] [place] [address] PCP - General 12/23/19 documented as of this encounter
--- OUTSIDE RECORDS SUMMARY | 2025-06-27 02:15 | XMS_ITS | Encounter Summary ---
Author Organization [facility] Address [address] [place] [address] Care Team Providers Care Cart Attendant Name Role Phone Frankie Weinstein MD Primary Care Provider [phone] Errol Nugent MD Unavailable Jhonatan Henderson MD Unavailable [phone] Carmenza Ruelas CREDIT CARD CLERK Unavailable [phone] Rachel Danielson PhD Unavailable [phone] Paul Armstrong MD Unavailable [phone] Estee Jacome DNP Unavailable [phone] Gonzalo Cespedes MD Unavailable [phone] Encounter Details Date Type Department Care Team (Late st Contact Info) Description 12/27/[address] [facility] [address] [place] [address] Bailey Alcantara, [place] [id number] [facility] [address] [place] [address] Social History Tobacco Use Types Packs/Day Years Used Date Smoking Tobacco: Never AUDIT-C Answer Date Recorded Q1: How often do you have a drink containing alc ohol? 2-4 times a month 10/28/2024 Q2: How many drinks containi ng alcohol do you have on a typical day when you are drinking? 1 or 2 10/28/2024 Q3: How often do you have si x or more drinks on one occasion? Never 10/28/2024 Personal Safety Answer Date Recorded Have you ever been in or are you currently in a harmful physical or emotional relationship or is someone making you feel afraid or unsafe? Denies 10/28/2024 Comments Unknown Sex and Gender Information Value Date Recorded Sex Assigned at Not on file Legal Sex Female 4:26 PM THERAPEUTIC SUPPORT STAFF Gender Identity Not on file Sexual Orientation Not on file documented as of this encounter Plan of Treatment Not on file documented as of this encounter Visit Diagnoses Not on filedocumented in this encounter Care Teams Cart Attendant Relationship Specialty Start Date End Date Frankie Weinstein MD PCP - General 03/05/17 Errol Nugent MD [address] [place] [address] Radiation Oncologist Radiation Oncology 08/03/18 Jhonatan Henderson MD [address] [facility] [address] [place] [address] Referring Physician Surgical Oncology 08/03/18 Carmenza Ruelas CNS [address] [facility] [address] [place] [address] Nurse Practitioner Certified Clinical Nurse Specialist 08/03/18 Rachel Danielson, PhD [address] [facility] [address] [place] [address] Nurse Practitioner Radiation Oncology 08/03/18 Paul Armstrong MD [address] [place] [address] Referring Physician Medical Oncology 08/03/18 Estee Jacome DNP [address] [place] [address] [address] [place] [address] Nurse Practitioner Nurse Practitioner 08/03/18 Gonzalo Cespedes MD [address] [place] [address] [address] [place] [address] Consulting Physician Otolaryngology 04/06/24 documented as of this encounter
--- OUTSIDE RECORDS SUMMARY | 2025-06-27 02:15 | XMS_ITS | Clinical Summary ---
Author Organization [facility] Address [address] [place] [address] Care Team Providers Care Bottle Tester Name Role Phone Frankie Weinstein MD Primary Care Provider [phone] Errol Nugent MD Unavailable Jhonatan Henderson MD Unavailable [phone] Carmenza Ruelas Unavailable [phone] Rachel Danielson PhD Unavailable [phone] Paul Armstrong MD Unavailable [phone] Estee Jacmoe [facility] Unavailable [phone] Gonzalo Cespedes MD Unavailable [phone] Allergies No known active allergies Medications meclizine (ANTIVERT) 25 mg tablet 25 MG ORALLY TWICE A DAY NEEDED FOR DIZZINESS 4 Active flecainide (TAMBOCOR) 100 mg tablet Take 1 tablet (100 mg total) by mouth every 12 (twelve) hours 4 Active albuterol HFA (PROVENTIL HFA,VENTOLIN HFA,PROAIR HFA) 90 mcg/actuation inhaler Inhale 2 puffs every 6 (six) hours as needed for wheezing Active cefuroxime (CEFTIN) 500 mg tablet Take 1 tablet (500 mg total) by mouth every 12 (twelve) hours 5 Active dabigatran (PRADAXA) 150 mg capsule Take 1 capsule (150 mg total) by mouth 2 (two) times a day 5 Active fluticasone propionate (FLONASE) 50 mcg/actuation nasal spray 1 SPRAY INTRANASALLY DAILY FOR 30 DAYS ADMINISTER INTO EACH NOSTRIL Active hydrocortisone (ANUSOL-HC) 2.5 % rectal cream APPLY LIBERALLY TO AFFECTED AREA TWICE A DAY NEEDED Active metoprolol tartrate (LOPRESSOR) 25 mg immediate release tablet Take 1 tablet (25 mg total) by mouth 2 (two) times a day Active Active Problems Problem Noted Date Diagnosed Date Family history of cancer 12/27/2024 Family history of breast cancer 12/27/2024 Paroxysmal atrial fibrillation 10/10/2024 Atrial fibrillation 10/10/2024 Raynaud's disease without gangrene 02/04/2021 Assessment & Plan (02/04/2021 9:36 AM CDT): Patient has Raynaud's disease with erythematous changes of her left foot when it is cool. She says now thinking about it it is get cold and then have a color change. I discussed with her that the mainstay of therapy is to keep her feet warm and the best way to do that during this cold weather would be with wool socks. She can also keep a warm blanket around them. I told her if anything gets worse to call and come see me otherwise she can follow-up as needed. Encounter for follow-up surveillance of breast c ancer 08/03/2018 Cancer of upper central portion of right female breast 08/03/2018 Cancer Staging:Clinical: Unsigned Pathologic:Stage IB(pT2, pN0(sn), cM0, G3, ER: Positive, [place]: Positive, HER2: Negative) - Signed by Rachel Danielson, PhD on 08/03/2018 Resolved Problems Problem Noted Date Diagnosed Date Resolved Date Palpitations 04/06/2013 10/10/2024 Encounters Date Type Department Care Team Description 05/05/2025 10:15 AM CDT Office Visit [facility] [address] [place] [id number] Rick Herbert MD Cardiac arrhythmia, unspecified cardiac arrhythmia type (Primary Dx) from Last 3 Months Surgical History Surgery Date Site/Laterality Comments HYSTERECTOMY BREAST LUMPECTOMY Right Medical History Medical History Date Comments Breast cancer (HCC) Palpitations Family History Medical History Relation Name Comments No Known Problems Daughter 2 Melaina cancer gen eti testing panel negative No Known Problems Father Evaristo Non-Hodgkin's Lymphoma Father's Brother 1 Pete COD at 77 Bladder Cancer Father's Brother 2 Luis E COD at 88 Bladder Cancer Father's Brother 3 Toño COD at 60 Lung cancer Father's Sister 1 Marquita COD at 59, hx of smoking Breast cancer Father's Sister 2 Gail Heart attack Maternal Grandfather Mark COD Sarcoma Maternal Grandmother Michelle osteosa rcoma? not COD Breast cancer Maternal cousin Cyn Hypertension Mother Keysha Parkinsonism Mother Keysha COD at 87 Sarcoma Paternal Grandfather Allison fibrosa rcoma? COD at 48 No Known Problems Paternal Grandmother Maite Breast cancer Paternal cousin 1 Aleena Breast cancer Paternal cousin 2 Fay GIST Paternal cousin 3 Sudheer COD Cancer Paternal cousin 4 Yesy unknown pr imary, metastatic Leukemia Paternal cousin 5 male COD at 3 No Known Problems Sister 1 Jacqueline No Known Problems Sister 2 Padmini Relation Name Status Comments Daughter 1 Carlyn Alive Daughter 2 Melaina Alive Father Evaristo Alive Father's Brother 1 Pete Father's Brother 2 Luis E (Age 88) Father's Brother 3 Toño (Age 60) Father's Sister 1 Marquita (Age 59) Father's Sister 2 Gail Alive Maternal Grandfather Mark (Age 52) Maternal Grandmother Michelle (Age 96) Maternal cousin Cyn Alive Mother Keysha (Age 87) Paternal Grandfather Allison (Age 48) Paternal Grandmother Maite (Age 81) Paternal cousin 1 Aleena Alive Paternal cousin 2 Fay Alive Paternal cousin 3 Sudheer (Age 61) Paternal cousin 4 Yesy (Age 53) Paternal cousin 5 male (Age 3) Sister 1 Jacqueline Alive Sister 2 Padmini Alive Social History Tobacco Use Types Packs/Day Years [...] on file Legal Sex Female 4:26 PM EMPLOYMENT EDUCATIONAL COORD Gender Identity Not on file Sexual Orientation Not on file Obstetrics History Last Filed Vital Signs Vital Sign Reading Time Taken Comments Blood Pressure 110/56 05/05/2025 10:11 AM CDT Pulse 90 05/05/2025 10:11 AM CDT Temperature 36.6 C (97.8 F) 10/28/2024 7:18 AM EMPLOYMENT EDUCATIONAL COORD Respiratory Rate 19 12/06/2024 1:16 PM EMPLOYMENT EDUCATIONAL COORD Oxygen Saturation 98% 12/06/2024 1:16 PM EMPLOYMENT EDUCATIONAL COORD Inhaled Oxygen Concentration - - Weight 68.6 kg (151 lb 4.8 oz) 05/05/2025 10:11 AM CDT Height 172.7 cm (5' 8) 05/05/2025 10:11 AM CDT Body Mass Index 23.01 05/05/2025 10:11 AM CDT Plan of Treatment Health Maintenance Due Date Last Done Comments Colon Cancer Screening-Colonoscopy 1955 Depression Screening 1955 Fall Risk Assessment 1955 Hepatitis C Screening 1955 Osteoporosis Screening-Bone Density Scan 1956 Hepatitis B Screening 1974 Pneumococcal vaccine 65+ (1 of 1 - PCV) 2006 Zoster Vaccine (1 of 2) 2006 Breast Cancer Screening-Mammogram 10/14/2018 017, 10/08/2016 Well Visit 65+ 2021 Covid-19 Vaccine (5 - 2023-2 5 season) 2024 08/20/2022, 11/01/2021, 03/08/2021, Additional history exists Influenza Vaccine (#1) 2025 08/20/2022, 2020 DTaP/Tdap/Td Vaccine (2 - Td or Tdap) 01/25/2033 01/25/2023 Medical Devices Implanted Type Area Fountain Helper Device Identifier Shelf Expiration Date Model / Serial / Lot [employer] Device Vascular Closure Vascade Mvp Xl 10-12fr Venous Strl 800-1012xl - [id number] - [id number] Implanted:Qty: 1 on 10/28/2024 by Rick Herbert MD at [facility] Collagen [employer] 07/26/2026 [id number] / [id number] / [id number] [employer] Device Closure Vascade Od5 Fr Femoral Artery [id number] - [id number] - [id number] Implanted:Qty: 1 on 10/28/2024 by Rick Herbert MD at [facility] Collagen [employer] 08/23/2026 [id number]- 05U / [id number] / [id number] [employer] Device Vascular Closure Femoral Artery Bioabsorbable Dual Method Vascade 6-7fr Collagen [id number] - [id number] - [id number] Implanted:Qty: 1 on 10/28/2024 by Rick Herbert MD at [facility] Collagen [employer] 08/17/2026 [id number]-0 5U / [id number] / [id number] Roman Vascular System Closure Repair Femoral Artery Suture Mediated Perclose Prostyle 96529-90 - [id number] - [id number] Implanted:Qty: 1 on 10/28/2024 by Rick Herbert MD at [facility] [employer] 08/15/2026 11283 -03 / [id number] / [id number] Roman Vascular System Closure Repair Femoral Artery Suture Mediated Perclose Prostyle 04297-49 - [id number] - [id number] Implanted:Qty: 1 on 10/28/2024 by Rick Herbert MD at [facility] [employer] 08/15/2026 98845 -03 / [id number] / [id number] Procedures Procedure Name Priority Date/Time Associated Diagnosis Comments ECG 12-LEAD Routine 05/05/2025 10:13 AM CDT Cardiac arrhythmia, unspecified cardiac arrhythmia type MAMMOGRAPHY, TOMOGRAPHY, BILATERAL Routine 10/14/2017 3:12 PM EMPLOYMENT EDUCATIONAL COORD from Last 3 Months or Most Recently Relevant to Health Maintenance Results * ECG 12 lead (05/05/2025 10:13 AM CDT) us Rick Herbert MD ECG ORDERABLES Final Re sult * MAMMOGRAPHY, TOMOGRAPHY, BILATERAL (10/14/2017 3:12 PM EMPLOYMENT EDUCATIONAL COORD) Anatomical Region Laterality Modality Bilateral Mammography 10/14/2017 3:12 PM EMPLOYMENT EDUCATIONAL COORD Narrative 10/14/2017 7:08 PM EMPLOYMENT EDUCATIONAL COORD Humberto LOZANO M.D. FINAL REPORT The radiology attending physician has personally reviewed this study, and has reviewed and/or edited this written report and agrees with it. ACC# Date Time Exam [id number] Oct 14, 2017 09:12:00 [facility] [id number] Dig Breast Micky Shahram Technologist(s): Nithya Perez; ; [id number] Oct 14, 2017 09:12:00 [facility] [id number] Diag Mamm, inc CAD, bilat Technologist(s): Nithya Perez; ; EXAMINATION: BILATERAL DIGITAL DIAGNOSTIC MAMMOGRAM INCLUDING CAD AND DIGITAL BREAST TOMOSYNTHESIS HISTORY: 61-year-old woman with history of invasive ductal carcinoma of the right breast status post breast conservation therapy in 2014. COMPARISON: 10/08/2016, 11/02/2015, 10/04/2015, 05/29/2015, 05/11/2015, 07/08/2012. TECHNIQUE: Full field digital mammographic views of BOTH breasts were performed, including computer aided detection (CAD) and digital breast tomosynthesis (DBT). BREAST PARENCHYMAL COMPOSITION: There are scattered areas of fibroglandular density. MAMMOGRAM FINDINGS: Findings compatible with prior right breast conservation therapy are noted. There is no suspicious finding in either breast. IMPRESSION: Annual diagnostic mammography is recommended. OVERALL FINAL ASSESSMENT: BI-RADS Category 2: Benign. Electronically signed by: Urszula Matamoros M.D. Requested By: Carmenza Ruelas CONTRACT ACCOUNTANT Dictated By: ADRIANA SHIRLEY M.D. on Oct 14 2017 10:10A This document has been electronically signed by: URSZULA MATAMOROS M.D. on Oct 14 2017 1:06P [id number] RAYMUNDO M.D. FINAL REPORT The radiology attending physician has personally reviewed this study, and has reviewed and/or edited this written report and agrees with it. Attending: CARMENZA RUELAS Requesting: Carmenza Ruelas Requesting Fax: Attending Fax: Attending ID: [id number] Requesting ID: [id number] Report To 1 ID: [id number] Report To 1 Name: , Report To 1 FAX: NextGen Order #: Procedure Note Miscellaneous, Not In File - 10/14/2017 URSZULA MATAMOROS M.D. ADRIANA SHIRLEY M.D. FINAL REPORT The radiology attending physician has personally reviewed this study, and has reviewed and/or edited this written report and agrees with it. ACC# Date Time Exam [id number] Oct 14, 2017 09:12:00 [facility] [id number] Dig Breast Micky Shahram Technologist(s): Nithya Perez; ; [id number] Oct 14, 2017 09:12:00 [facility] [id number] Dia Mamm, inc CAD, bilat Technologist(s): Nithya Perez; ; EXAMINATION: BILATERAL DIGITAL DIAGNOSTIC MAMMOGRAM INCLUDING CAD AND DIGITAL BREAST TOMOSYNTHESIS HISTORY: 61-year-old woman with history of invasive ductal carcinoma of the right breast status post breast conservation therapy in 2014. COMPARISON: 10/08/2016, 11/02/2015, 10/04/2015, 05/29/2015, 05/11/2015, 07/08/2012. TECHNIQUE: Full field digital mammographic views of BOTH breasts were performed, including computer aided detection (CAD) and digital breast tomosynthesis (DBT). BREAST PARENCHYMAL COMPOSITION: There are scattered areas of fibroglandular density. MAMMOGRAM FINDINGS: Findings compatible with prior right breast conservation therapy are noted. There is no suspicious finding in either breast. IMPRESSION: Annual diagnostic mammography is recommended. OVERALL FINAL ASSESSMENT: BI-RADS Category 2: Benign. Electronically signed by: Urszula Matamoros M.D. Requested By: Carmenza Ruelas Dictated By: ADRIANA SHIRLEY M.D. on Oct 14 2017 10:10A This document has been electronically signed by: URSZULA MATAMOROS M.D. on Oct 14 2017 1:06P [id number] MATAMOROS M.D. ADRIANA SHIRLEY M.D. FINAL REPORT The radiology attending physician has personally reviewed this study, and has reviewed and/or edited this written report and agrees with it. Attending: CARMENZA RUELAS Requesting: Carmenza Ruelas Requesting Fax: Attending Fax: Attending ID: [id number] Requesting ID: [id number] Report To 1 ID: [id number] Report To 1 Name: , Report To 1 FAX: NextGen Order #: Carmenza PHILLIPS IMG MAMMO PROCEDURES Final R esult from Last 3 Months or Most Recently Relevant to [place] [address] TNA MEDICARE GOLD AET MEDICARE GOLD AETNA MEDICARE GOLD Care Teams Bottle Tester Relationship Specialty Start Date End Date Frankie Weinstein MD PCP - General 03/05/17 Errol Nugent MD [address] [employer] [address] [place] [address] Radiation Oncologist Radiation Oncology 08/03/18 Jhonatan Henderson MD [address] [facility] [address] [place] [address] Referring Physician Surgical Oncology 08/03/18 Carmenza Ruelas, CONTRACT ACCOUNTANT [address] [facility] [address] [place] [address] Nurse Practitioner Certified Clinical Nurse Specialist 08/03/18 Rahcel Danielson, PhD [address] [facility] [address] [place] [address] Nurse Practitioner Radiation Oncology 08/03/18 Paul Armstrong MD [address] [place] [address] Referring Physician Medical Oncology 08/03/18 Estee Jacome DNP [address] [facility] [address] [place] [address] Nurse Practitioner Nurse Practitioner 08/03/18 Gonzalo Cespedes MD [address] [place] [address] [address] [place] [address] Consulting Physician Otolaryngology 04/06/24
--- OUTSIDE RECORDS SUMMARY | 2025-06-27 02:15 | XMS_ITS | Continuity of Care Document ---
Author Organization [facility] Address [address] [place] [address] [address] [place] [address] Phone Care Team Providers Care Data Warehouse Developer Name Role Phone Carmichael OD, Devante Unavailable Unavailable Procedures Procedure Date Eye Exam & Treatment Refraction Eye Exam & Treatment Refraction Advance Directives Directive Yes / No Effective Date File Name No Information Encounters Encounter Description Practice Location Reason(s) For Visit Diagnoses Date Provider Providers Copied on Encounter [facility], [address] [place] [address] [address], [place], [place], [id number], tel:[phone] [facility] No Information Jan- 3-200 8 Carmichael OD Devante. [address] [facility] [address] , [address], [place], [place], [facility], . tel:[phone] [facility], [address] [place] [address] [address], [place], [place], [id number], tel:[phone] [facility] No Information 6-200 7 Doisy Edward. [address] [facility] [address] , [address], [place], [address], [place]. tel:[phone] Family History Family Member Type Diagnosis Age At Onset No Information Payers Payer name Insurance type Covered libertarian ID Authoriza tion(s) No Information Social History Type Description Quantity Date Captured Comments Sex Female Smoking Status No Information Chief Complaint And Reason For Visit No Information Reason For Referral Reason For Referral No Information History Of Present Illness Encounter Date Complaint History Of Prese nt Illness No Information Functional Status Date Functional Assessmen t No Information Instructions Date Instruction Additional Infor mation No Information Assessments Type Assessment Date No Information Patient Care Teams Name Effective Dates (start - stop) Status Members No Information
--- OUTSIDE RECORDS SUMMARY | 2025-06-27 02:15 | XMS_ITS ---
Author Organization [facility] Address [address] [place] [address] Care Team Providers Care Wool Hat Sanding Machine Operator Name Role Phone Frankie Weinstein MD Primary Care Provider [phone] Errol Nugent MD Unavailable Jhonatan Henderson MD Unavailable [phone] Carmenza Ruelas [facility] Unavailable [phone] Rachel Danielson PhD Unavailable [phone] Paul Armstrong MD Unavailable [phone] Estee Jacome [facility] Unavailable [phone] Gonzalo Cespedes MD Unavailable [phone] Active Problems Problem Noted Date Diagnosed Date [...] Pathologic:Stage IB(pT2, pN0(sn), cM0, G3, ER: Positive, [place]: Positive, HER2: Negative) - Signed by Rachel Danielson, PhD on 08/03/2018 Current Treatment and Therapy Plans No current plan information found. Past Treatment and Therapy Plans No past plan information found. Lifetime Dose Tracking * Chemical Lifetime Dose Automatic Entry Manual Entr y Air kerma at the reference point (Ka,r) 13 mGy 0 mGy 13 mGy Resolved Problems Problem Noted Date Diagnosed Date Resolved Date Palpitations 04/06/2013 10/10/2024
--- OUTSIDE RECORDS SUMMARY | 2025-06-27 02:15 | XMS_ITS | Clinical Summary ---
Author Organization [facility] Address [address] [place] [address] Care Team Providers Care Tip Inserter Name Role Phone Frankie Weinstein MD Primary Care Provider [phone] Source Comments [facility],non-owned Affiliates and Associated Physician Practices is amultiple site organization consisting of ambulatory clinics and hospital sitesin [place] and [place]. This disclosure is being madepursuant to the Care Everywhere program and may not contain all information available regarding this patient. Last updated 18.[facility] Allergies No known active allergies Medications * Be aware that medications may not be up to date on this document. Alwaysverify current medications with the patient. metoprolol tartrate IR (Lopressor) 25 MG tablet Take 1 (one) tablet by mouth 2 times daily 11/28/2024 Active flecainide (Tambocor) 50 MG tablet Take 1 (one) tablet by mouth every 12 hours 11/28/2024 Active Eliquis 5 MG tablet Take 1 (one) tablet by mouth every 12 hours 12/10/2024 Active albuterol HFA (Proventil; Ventolin; Proair) 108 (90 Base) MCG/ACT inhaler Inhale 2 (two) puffs by mouth every 6 hours as needed Active Family History Medical History Relation Name Comments Hypertension Mother Relation Name Status Comments Mother Social History Tobacco Use Types Packs/Day Years Used Date Smoking Tobacco: Never Smokeless Tobacco: Never Alcohol Use Standard Drinks/Week Comments Yes 0 (1 standard drink = 0.6 oz pur e alcohol) ocassionlly Comments No Sex and Gender Information Value Date Recorded Sex Assigned at Not on file Legal Sex Female 8:49 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 Gender Identity Not on file Sexual Orientation Not on file Last Filed Vital Signs Vital Sign Reading Time Taken Comments Blood Pressure 106/60 12/29/2024 10:32 AM 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 Pulse 74 12/29/2024 10:32 AM 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 Temperature 36 C (96.8 F) 12/29/2024 10:32 AM 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 Respiratory Rate - - Oxygen Saturation - - Inhaled Oxygen Concentration - - Weight 69.1 kg (152 lb 6.4 oz) 12/29/2024 10:32 AM 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 Height 172.7 cm (5' 8) 12/29/2024 10:32 AM 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 Body Mass Index 23.17 12/29/2024 10:32 AM 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 Plan of Treatment Health Maintenance Due Date Last Done Comments BONE DENSITY TESTING 1955 COLOGUARD (AGES 45-75) - COLON CA SCREENING 1956 COLON MONITORING 1956 COLONOSCOPY - COLON CA SCREENING 1956 CT COLONOGRAPHY - COLON CA SCREENING 1956 Colorectal Cancer Screening 1956 FIT - COLON CA SCREENING 1956 FLEX SIG - COLON CA SCREENING 1956 LIPID TESTING 1956 HEPATITIS C SCREENING 11/02/1974 DTAP/TDAP/TD VACCINES (1 - Tdap) 1975 PNEUMOCOCCAL VACCINE 50+ (1 of 1 - PCV) 2006 ZOSTER VACCINE (1 of 2) 2006 MAMMOGRAM 10/14/2019 10/14/2017, 09/17, 10/08/2016, Additional history exists COVID-19 VACCINE ( - 2023- season) 2024 DEPRESSION SCREENING 11/16/2024 MEDICARE AWV CALENDAR YEAR 2024 INFLUENZA VACCINE (#1) 2025 Respiratory Syncytial Virus (RSV) Vaccine Pt: or over 60 yrs (1 - 1-dose 75+ series) 2031 HEPATITIS B VACCINE Aged Out No longe r eligible based on patient's age to complete this topic HIB VACCINE Aged Out No longer eligi ble based on patient's age to complete this topic HPV VACCINE Aged Out No longer eligi ble based on patient's age to complete this topic MENINGOCOCCAL (Group B) VACCINE SHARED DECISION-MAKING Aged Out No longer eligible based on patient's age to complete this topic MENINGOCOCCAL GROUPS A/C/Y/W VACCINE Aged Out No longer eligible based on patient's age to complete this topic [facility] Address: [facility] [id number] [place] [address] AETNA MEDICARE ADV Care Teams Tip Inserter Relationship Specialty Start Date End Date Frankie Weinstein MD [address] [place] [address] PCP - General 12/23/19
--- OUTSIDE RECORDS SUMMARY | 2025-06-27 02:15 | XMS_ITS | Encounter Summary ---
Author Organization [facility] Address [address] [place] [address] Care Team Providers Care Compliance Technician Name Role Phone Frankie Weinstein MD Primary Care Provider [phone] Encounter Details Date Type Department Care Team (Late st Contact Info) Description 02/25/2024 Lab Requisition [facility] - DermPath Lab [address] [place] [address] Reji Gomez MD [address] [place] [address] Social History Tobacco Use Types Packs/Day Years Used Date Smoking Tobacco: Never Assessed Comments Unknown Sex and Gender Information Value Date Recorded Sex Assigned at Not on file Legal Sex Female 8: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 ASSEMBLER PLASTIC Gender Identity Not on file Sexual Orientation Not on file documented as of this encounter Plan of Treatment Not on file documented as of this encounter Procedures Procedure Name Priority Date/Time Associated Diagnosis Comments DERMATOPATHOLOGY Routine 02/24/2024 3:33 AM CDT documented in this encounter Results * DERMATOPATHOLOGY (02/24/2024 3:33 AM CDT) Case Report Dermatopathology Report Case: [id number] Authorizing Provider: Reji Gomez MD Collected: 02/24/2024 03:33 AM Ordering Location: [facility] - Received: 02/26/2024 07:00 AM DermPath Lab Pathologist: Kera Lemus MD Specimen: Skin, mid nasal bridge 2:43 PM CDT DERMATOPATHOLOGY LABORATORY Final Diagnosis Specimen A. SKIN, mid nasal bridge: HEALING SKIN CHANGES, SUPERFICIAL PORTIONS OF (L90.5) ACTINIC KERATOSIS, SUPERFICIAL PORTIONS OF (L57.0) 4 2:43 PM CDT DERMATOPATHOLOGY LABORATORY at 1442 CDT Clinical History Sebaceous Neoplasm. Check Margin and Prior Biopsy 4 2:43 PM CDT DERMATOPATHOLOGY LABORATORY Gross Description Specimen A: Received is one formalin filled container labeled with the patient's name and designated mid nasal bridge. The specimen consists of a curettage and desiccation biopsy measuring 6x5x1 mm. Jar 0. 4 2:43 PM CDT DERMATOPATHOLOGY LABORATORY Microscopic Description Specimen A. SKIN, mid nasal bridge: There is epidermal hyperplasia beneath which there are vascular proliferation, fibroblasts, and an edematous stroma. There is focal parakeratosis. The lower half of the epidermis shows disorderly maturation of keratinocytes with nuclear pleomorphism. COMMENT: Given the superficial nature of the biopsy specimen, a deeper dermal process cannot be excluded. 4 2:43 PM CDT DERMATOPATHOLOGY LABORATORY Disclaimer An external and internal positive and negative controls are appropriate for the histochemical, immunohistochemical and immunofluorescence stain(s) in this case (if any), except where stated explicitly. The performance characteristics of the stain(s) cited in this report were developed and its performance characteristic determined by the Dermatopathology Laboratory at [facility], directed by Dr. Henny Pond. These tests need not be, and therefore are not, approved by the [place] Food and Drug Administration. The tests are used for clinical purposes. Billing Codes Specimen Charges Stain Charges 77304 1 4 2:43 PM CDT DERMATOPATHOLOGY LABORATORY Embedded Images 4 2:43 PM CDT DERMATOPATHOLOGY LABORATORY Pathology/Cytolo gy TISSUE SPECIMEN FROM SKIN / Unknown 02/24/2024 3:33 AM CDT 02/26/2024 7:00 AM CDT Reji Gomez MD LAB - PATHOLOGY/CYTOLOGY ORDERAB LES Final Result DERMATOPATHOLOGY LABORATORY [facility] - Department of Dermatology [address], [address] [phone] documented in this encounter Visit Diagnoses Not on filedocumented in this encounter Care Teams Compliance Technician Relationship Specialty Start Date End Date Frankie Weinstein MD [address] [place] [address] PCP - General 12/23/19 documented as of this encounter
[2025-06-27 10:54] VITALS: BP 120/66; PULSE 95; RESP 20; TEMP 36.6; O2SAT 100; BMI 22.8
[2025-06-27] MEDS: LACTATED RINGERS 1,000 ML 150 ML IV CONT (11:12)
--- NOTE | 2025-06-27 11:20 | WPDANESEPPF ---
Anes - Initial Pre Proc Eval Procedure: Operation Date: 06/27/25 11:30 Proposed Procedures p Colonoscopy - Stevie Neal MD Date/Time: 06/27/25 11:20 Surgeon: Stevie Neal MD Pre Op Diagnosis: Hemorrhage of anus and rectum Patient Data Age: 69 Gender: F Height: 1.73 m Weight: 68 kg Last Vital Signs Temp 97.8 F 06/27/25 10:54 Pulse 95 06/27/25 10:54 Resp 20 06/27/25 10:54 BP 120/66 06/27/25 10:54 Pulse Ox 100 06/27/25 10:54 O2 Del Method Room Air 06/27/25 10:54 Allergies Allergy/AdvReac Type Severity Reaction Status Date / Time No Known Allergies Allergy Unknown Verified 06/27/25 10:53 Home Medications ?Medication ?Instructions ?Recorded ?Confirmed ?Type albuterol sulfate 90 mcg/actuation 1 - 2 puff inhalation Q4-6H PRN 08/19/24 06/13/25 Rx aerosol inhaler shortness of breath or wheezing #8.5 grams metoprolol tartrate 25 mg tablet 25 mg PO BID #60 tabs 11/28/24 06/27/25 Rx dabigatran etexilate 150 mg capsule 150 mg PO BID #60 caps 01/17/25 06/27/25 Rx Patient hx anesthesia problems: none Family hx anesthesia problems: none Results Review: All pre-operative results and documents have been reviewed as part of the pre-operative evaluation. [facility] Past Medical History Medical History Deviated nasal septum Hypertrophy of nasal turbinates Pneumonia Sinusitis chronic, ethmoidal Wheezing Bibasilar crackles Sinus disease Community acquired pneumonia Persistent cough Shortness of breath Constipation Constipation Vertigo Atrial fibrillation with RVR Irregular heart beat Grieving Allergic reaction Minimal cognitive impairment New onset atrial fibrillation EDUARDO (acute kidney injury) Vitamin B12 deficiency Hypomagnesemia Anxiety Sjogrens syndrome Alopecia Elevated liver enzymes Low back pain Shoulder pain Neck pain Raynaud's phenomenon (by history or observed) Breast cancer Screening, lipid Surgical History Surgical History History of lumpectomy of right breast H/O: hysterectomy Family History Family History Mother Hypertension Parkinson's disease Grandparent Family history of malignant neoplasm Father No problems noted. Sibling Heart disease Social History Social History Social History: Caffeine-limited Smoking status: Never smoker Second hand tobacco smoke exposure: No Alcohol intake: current Drinks per week: 1 Alcohol use details: wine Substance use: never Substance use type: does not use Do You Feel Safe in your Home?: Yes Lack of Transportation: No Lack of Food: Never True Current Housing: I Have Housing Concerned About Future Housing: No Difficulty Paying Gas/Electric Bills: No Difficulty Paying for Meds: No Currently Unemployed: No Education: Bachelor's Degree Difficulty w/ Childcare or Family Care: No Living arrangements: with family Occupation/Education: retired 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 Hx of PSVT, s/p ablation and now on b brianda bid (taken last pm). Informed Consent: The patient's anesthetic plan and its attendant risks and benefits were discussed with the patient/family/POA. Questions were solicited and answers provided to the satisfaction of the patient/family/POA.
--- NOTE | 2025-06-27 11:32 | PM.HPGS ---
History of Present Illness History of Present Illness Consent: Risks, benefits, and alternatives have been discussed and questions answered. Patient agrees to proceed with procedure. Chief complaint: Hemorrhage of anus and rectum Narrative: Beatriz Courtney is a 69 year old female with rectal bleeding about 2 months ago, last colonoscopy 8 years ago Review of Systems Review of Systems: All systems reviewed & are unremarkable except as noted in HPI and below PMFSH Past Medical History Medical History (Updated 06/27/25 @ 11:32 by Stevie Neal MD) Blood in stool Deviated nasal septum Hypertrophy of nasal turbinates Pneumonia Sinusitis chronic, ethmoidal Wheezing Bibasilar crackles Sinus disease Community acquired pneumonia Persistent cough Shortness of breath Constipation Constipation Vertigo Atrial fibrillation with RVR Irregular heart beat Grieving Allergic reaction Minimal cognitive impairment New onset atrial fibrillation EDUARDO (acute kidney injury) Vitamin B12 deficiency Hypomagnesemia Anxiety Sjogrens syndrome Alopecia Elevated liver enzymes Low back pain Shoulder pain Neck pain Raynaud's phenomenon (by history or observed) Breast cancer Screening, lipid Surgical History Surgical History History of lumpectomy of right breast H/O: hysterectomy Family History Family History Mother Hypertension Parkinson's disease Grandparent Family history of malignant neoplasm Father No problems noted. Sibling Heart disease Social History Social History Social History: Caffeine-limited Smoking status: Never smoker Second hand tobacco smoke exposure: No Alcohol intake: current Drinks per week: 1 Alcohol use details: wine Substance use: never Substance use type: does not use Do You Feel Safe in your Home?: Yes Lack of Transportation: No Lack of Food: Never True Current Housing: I Have Housing Concerned About Future Housing: No Difficulty Paying Gas/Electric Bills: No Difficulty Paying for Meds: No Currently Unemployed: No Education: Bachelor's Degree Difficulty w/ Childcare or Family Care: No Living arrangements: with family Occupation/Education: retired 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 Gender identity (if verbalized by the patient): Female Spiritual care concerns: No Meds Home Medications and Allergies Home Medications ?Medication ?Instructions ?Recorded ?Confirmed ?Type albuterol sulfate 90 mcg/actuation 1 - 2 puff inhalation Q4-6H PRN 08/19/24 06/13/25 Rx aerosol inhaler shortness of breath or wheezing #8.5 grams metoprolol tartrate 25 mg tablet 25 mg PO BID #60 tabs 11/28/24 06/27/25 Rx dabigatran etexilate 150 mg capsule 150 mg PO BID #60 caps 01/17/25 06/27/25 Rx Allergies Allergy/AdvReac Type Severity Reaction Status Date / Time No Known Allergies Allergy Unknown Verified 06/27/25 10:53 Vital Signs Vital Signs - 24 hr 06/27/25 10:54 Temperature 97.8 F Pulse Rate 95 Respiratory Rate 20 Blood Pressure 120/66 Pulse Oximetry 100 Oxygen Delivery Room Air Exam Const: General: comfortable and no acute distress HENMT: Face/Nose/Sinus: Normal nares present Eyes: General: appearance normal, both eyes and all related structures Neck: Neck: no JVD Resp: Auscultation: clear to auscultation bilaterally Cardio: Rate: regular rate Rhythm: regular rhythm GI: Inspection: non-distended GI Palp: Yes Soft to palpation Skin: General skin exam: normal color Neuro: General: gait normal Speech: normal speech Extrem: General: normal to inspection Psych: Mental Status: mental status grossly normal Assessment and Plan Assessment and plan (1) Blood in stool: Code(s): K92.1 - Melena Status: Acute Assessment and Plan: colonoscopy
[2025-06-27 11:47] VITALS: BP 84/39; PULSE 83; RESP 24; O2SAT 99
[2025-06-27 11:57] VITALS: BP 112/71; PULSE 65; RESP 15; O2SAT 100
[2025-06-27 12:07] VITALS: BP 121/73; PULSE 67; RESP 16; O2SAT 99
== END 2025-06-27 12:10 | disposition home or self-care (01) ==
PROVIDERS: PCP Family Medicine; Referring Provider Obstetrics & Gynecology; Visit Provider Internal Medicine Gastroenterology
PROC: 0DJD8ZZ Inspection of Lower Intestinal Tract, Via Natural or Artificial Opening Endoscopic (ICD-10-PCS; CPT 45378; principal; 2025-06-27 11:30)
DX: K92.1 Melena (principal); I48.20 Chronic atrial fibrillation, unspecified; I49.9 Cardiac arrhythmia, unspecified; G31.84 Mild cognitive impairment of uncertain or unknown etiology; E53.8 Deficiency of other specified B group vitamins; E83.42 Hypomagnesemia; F41.9 Anxiety disorder, unspecified; M35.00 Sjogren syndrome, unspecified; I73.00 Raynaud's syndrome without gangrene; Z79.51 Long term (current) use of inhaled steroids; Z98.890 Other specified postprocedural states; Z85.3 Personal history of malignant neoplasm of breast; Z80.9 Family history of malignant neoplasm, unspecified; Z82.49 Family history of ischemic heart disease and other diseases of the circulatory system
CPT/HCPCS: 45378; J2003; J2704; J7120

== ENCOUNTER 2025-08-23 10:16 | Outpatient (CLI) | payer MEDICARE, SELFPAY ==
--- NOTE | 2025-08-23 10:22 | ECG_ITS ---
Test Date: 2025-08-23 10:37:42 Measurements Intervals Shipman Rate: 84 P: 64 KS: 163 QRS: 29 QRSD: 99 T: 53 QT: 364 QTc: 431 Interpretive Statements SINUS RHYTHM WITH OCCASIONAL SUPRAVENTRICULAR PREMATURE COMPLEXES BORDERLINE ECG Compared to ECG 07/11/2024 18:48:33 Atrial fibrillation no longer present Incomplete right bundle-branch block no longer present Electronically Signed On 08-23-2025 10:41:21 CDT by Dino Rush D.O.
== END 2025-08-23 10:17 | disposition home or self-care (01) ==
PROVIDERS: PCP Family Medicine; Referring Provider Internal Medicine Cardiovascular Disease; Visit Provider Nurse Practitioner Adult Health
DX: R94.31 Abnormal electrocardiogram [ECG] [EKG] (principal); I47.10 Supraventricular tachycardia, unspecified; R00.2 Palpitations; I48.91 Unspecified atrial fibrillation; I48.92 Unspecified atrial flutter
CPT/HCPCS: 93005

== ENCOUNTER 2025-10-03 09:44 | Outpatient (CLI) | payer MEDICARE, SELFPAY ==
--- NOTE | ~2025-10-03 | MM_ITS ---
EXAMINATION: MM screening miguelangel BI w valerie HISTORY: Screening TECHNIQUE: Craniocaudal and mediolateral oblique 3-D tomosynthesis images were obtained and synthetic 2-D images were generated. CAD analysis was submitted and interpreted. COMPARISON: Comparison to multiple prior studies sequentially, with oldest reviewed study dated 12/24/2019. BREAST PARENCHYMAL COMPOSITION: Not dense: There are scattered areas of fibroglandular density. FINDINGS: There is no evidence of suspicious mass, calcification, or architectural distortion to suggest malignancy in either breast. There has been no suspicious interval change. IMPRESSION: 1. No mammographic evidence of malignancy. 2. Recommend routine screening mammography in one year. BI-RADS Category 1: Negative Reviewed, dictated and finalized at location O. CULTURE SCIENTIST
== END 2025-10-03 09:45 | disposition home or self-care (01) ==
LOC: ANHFOHIMG 09:45
PROVIDERS: PCP Family Medicine; Visit Provider Obstetrics & Gynecology
DX: Z12.31 Encounter for screening mammogram for malignant neoplasm of breast (principal)
CPT/HCPCS: 77063; 77067

== ENCOUNTER 2025-10-05 14:18 | Outpatient (CLI) | payer MEDICARE, SELFPAY ==
--- OUTSIDE RECORDS SUMMARY | 2025-10-05 17:27 | XMS_ITS ---
Author Organization [facility] Address [address] [place] [address] Care Team Providers Care Respooler Name Role Phone Frankie Weinstein MD Primary Care Provider [phone] Errol Nugent MD Unavailable Jhonatan Henderson MD Unavailable Carmenza Ruelas CHEMICAL RECOVERY OPERATOR Unavailable [phone] Rachel Danielson PhD Unavailable [phone] Paul Armstrong MD Unavailable [phone] Estee Jacome [place] Unavailable [phone] Gonzalo Cespedes MD Unavailable [phone] Active Problems Problem Noted Date Diagnosed Date [...] Pathologic:Stage IB(pT2, pN0(sn), cM0, G3, ER: Positive, [place]: Positive, HER2: Negative) - Signed by Rachel Danielson, PhD on 08/03/2018 Current Treatment and Therapy Plans No current plan information found. Past Treatment and Therapy Plans No past plan information found. Lifetime Dose Tracking * Chemical Lifetime Dose Automatic Entry Manual Entr y Fluoro Time 9.1 minutes 0 minutes 9.1 minutes Air kerma at the reference point (Ka,r) 13 mGy 0 mGy 13 mGy DAP 8.65 Gy-cm2 0 Gy-cm2 8.65 Gy-cm2 Resolved Problems Problem Noted Date Diagnosed Date Resolved Date Palpitations 04/06/2013 10/10/2024
--- OUTSIDE RECORDS SUMMARY | 2025-10-05 17:27 | XMS_ITS | Encounter Summary ---
Author Organization [facility] Address [address] [place] [address] Care Team Providers Care Labourers Name Role Phone Frankie Weinstein MD Primary Care Provider [phone] Encounter Details Date Type Department Care Team (Late st Contact Info) Description 02/25/2024 Lab Requisition [facility] - DermPath Lab [address] [place] [address] Reji Gomez MD [address] [place] [address] Social History Tobacco Use Types Packs/Day Years Used Date Smoking Tobacco: Never Assessed Comments Unknown Sex and Gender Information Value Date Recorded Sex Assigned at Not on file Legal Sex Female 8: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 SPECIALIST Gender Identity Not on file Sexual Orientation Not on file documented as of this encounter Plan of Treatment Not on file documented as of this encounter Procedures Procedure Name Priority Date/Time Associated Diagnosis Comments DERMATOPATHOLOGY Routine 02/24/2024 3:33 AM CDT documented in this encounter Results * DERMATOPATHOLOGY (02/24/2024 3:33 AM CDT) Case Report Dermatopathology Report Case: [id number] Authorizing Provider: Reji Gomez MD Collected: 02/24/2024 03:33 AM Ordering Location: [facility] - Received: 02/26/2024 07:00 AM DermPath Lab Pathologist: Kera Lemus MD Specimen: Skin, mid nasal bridge 4 2:43 PM CDT DERMATOPATHOLOGY LABORATORY Final Diagnosis [...] characteristic determined by the Dermatopathology Laboratory at [facility], directed by Dr. Henny Pond. These tests need not be, and therefore are not, approved by the [place] Food and Drug Administration. The tests are used for clinical purposes. Billing Codes Specimen Charges Stain Charges 20665 1 4 2:43 PM CDT DERMATOPATHOLOGY LABORATORY Embedded Images 4 2:43 PM CDT DERMATOPATHOLOGY LABORATORY Pathology/Cytolo gy TISSUE SPECIMEN FROM SKIN / Unknown 02/24/2024 3:33 AM CDT 02/26/2024 7:00 AM CDT Reji Gomez MD LAB - PATHOLOGY/CYTOLOGY ORDERAB LES Final Result DERMATOPATHOLOGY LABORATORY [facility] - Department of Dermatology [address] [phone] documented in this encounter Visit Diagnoses Not on filedocumented in this encounter Care Teams Labourers Relationship Specialty Start Date End Date Frankie Weinstein MD [address] [place] [address] PCP - General 12/23/19 documented as of this encounter
--- OUTSIDE RECORDS SUMMARY | 2025-10-05 17:27 | XMS_ITS | Encounter Summary ---
Author Organization [facility] Address [address] [place] [address] Care Team Providers Care Vessel Captain Name Role Phone Frankie Weinstein MD Primary Care Provider [phone] Encounter Details Date Type Department Care Team (Late st Contact Info) Description 12/23/2019 Lab Requisition [facility] DermPath Lab [address] [place] [address] Reji Gomez MD [address] [place] [address] Social History Tobacco Use Types Packs/Day Years Used Date Smoking Tobacco: Never Assessed Comments Unknown Sex and Gender Information Value Date Recorded Sex Assigned at Not on file Legal Sex Female 8:49 AM HYDROCHLORIC AREA SUPERVISOR Gender Identity Not on file Sexual Orientation Not on file documented as of this encounter Plan of Treatment Not on file documented as of this encounter Procedures Procedure Name Priority Date/Time Associated Diagnosis Comments DERMATOPATHOLOGY Routine 12/22/2019 12:0 0 AM HYDROCHLORIC AREA SUPERVISOR documented in this encounter Results * DERMATOPATHOLOGY (12/22/2019 12:00 AM HYDROCHLORIC AREA SUPERVISOR) Case Report Dermatopathology Report Case: [id number] Authorizing Provider: Reji Gomez MD Collected: 12/22/2019 12:00 AM Ordering Location: [facility] DermPath Lab Received: 12/23/2019 09:12 AM Pathologist: Kera Lemus MD Specimen: Skin, right upper nasal wall 0 12:54 PM HYDROCHLORIC AREA SUPERVISOR DERMATOPATHOLOGY LABORATORY Final Diagnosis Specimen A. SKIN, right upper nasal wall: SEBORRHEIC KERATOSIS, INFLAMED (L82.0) 0 12:54 PM HYDROCHLORIC AREA SUPERVISOR DERMATOPATHOLOGY LABORATORY at [address] HYDROCHLORIC AREA SUPERVISOR Clinical History R/O neoplasm. 0 12:54 PM [facility] [[email or web address]] DERMATOPATHOLOGY LABORATORY Gross Description Specimen A: Received is one formalin filled container labeled with the patient's name and designated right upper nasal wall. The specimen consists of a shave biopsy measuring [id number]. Jar 0. 0 12:54 PM [facility] [[email or web address]] DERMATOPATHOLOGY LABORATORY Microscopic Description Specimen A. SKIN, right upper nasal wall: There is hyperkeratosis, parakeratosis, papillomatosis, and acanthosis of the epidermis. 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 0 12:54 PM [facility] [[email or web address]] DERMATOPATHOLOGY LABORATORY Disclaimer An external and internal positive and negative controls are appropriate for the histochemical, immunohistochemical and immunofluorescence stain(s) in this case (if any), except where stated explicitly. The performance characteristics of the stain(s) cited in this report were developed and its performance characteristic determined by the Dermatopathology Laboratory at [facility], directed by Dr. Henny Pond. These tests need not be, and therefore are not, approved by the [place] Food and Drug Administration. The tests are used for clinical purposes. Billing Codes Specimen Charges Stain Charges 81228 1 0 12:54 PM [facility] [[email or web address]] DERMATOPATHOLOGY LABORATORY Embedded Images 0 12:54 PM [facility] [[email or web address]] DERMATOPATHOLOGY LABORATORY Pathology/Cytolog y TISSUE SPECIMEN FROM SKIN / Unknown 12/22/2019 12/23/2019 9:12 AM HYDROCHLORIC AREA SUPERVISOR Reji Gomez MD LAB - PATHOLOGY/CYTOLOGY ORDERAB LES Final Result DERMATOPATHOLOGY LABORATORY [facility] - Department of Dermatology [facility] [facility], [address]th [place] [address], [facility] [phone] documented in this encounter Visit Diagnoses Not on filedocumented in this encounter Care Teams Vessel Captain Relationship Specialty Start Date End Date Frankie Weinstein MD [address] [place] [phone] PCP - General 12/23/19 documented as of this encounter
--- OUTSIDE RECORDS SUMMARY | 2025-10-05 17:27 | XMS_ITS | Clinical Summary ---
Author Organization [facility] Address [address] [place] [address] Care Team Providers Care Sample Worker Name Role Phone Frankie Weinstein MD Primary Care Provider [phone] Source Comments [facility],non-owned Affiliates and Associated Physician Practices is amultiple site organization consisting of ambulatory clinics and hospital sitesin [place], [place], [place] and [place]. This disclosure is being madepursuant to the Care Everywhere program and may not contain all information available regarding this patient. Last updated 18.[facility] [employer] Allergies No known active allergies Medications * [...] on file Legal Sex Female 8:49 AM UPPER LEATHER CUTTER Gender Identity Not on file Sexual Orientation Not on file Last Filed Vital Signs Vital Sign Reading Time Taken Comments Blood Pressure 106/60 12/29/2024 10:32 AM UPPER LEATHER CUTTER Pulse 74 12/29/2024 10:32 AM UPPER LEATHER CUTTER Temperature 36 C (96.8 F) 12/29/2024 10:32 AM UPPER LEATHER CUTTER Respiratory Rate - - Oxygen Saturation - - Inhaled Oxygen Concentration - - Weight 69.1 kg (152 lb 6.4 oz) 12/29/2024 10:32 AM UPPER LEATHER CUTTER Height 172.7 cm (5' 8) 12/29/2024 10:32 AM UPPER LEATHER CUTTER Body Mass Index 23.17 12/29/2024 10:32 AM UPPER LEATHER CUTTER Plan of Treatment Health Maintenance Due Date [...] 10/14/2019 10/14/2017, 09/17, 10/08/2016, Additional history exists DEPRESSION SCREENING 11/16/2024 MEDICARE AWV CALENDAR YEAR 2024 COVID-19 VACCINE ( season) 2025 INFLUENZA VACCINE (#1) 2025 Respiratory Syncytial Virus [...] patient's age to complete this topic Insurance [facility] Address: [facility] [id number] [place] [address] [employer] MEDICARE ADV Care Teams Sample Worker Relationship Specialty Start Date End Date Frankie Weinstein MD [address] [place] [address] PCP - General 12/23/19
--- OUTSIDE RECORDS SUMMARY | 2025-10-05 17:27 | XMS_ITS | Encounter Summary ---
Author Organization [facility] Address [address] [place] [address] Care Team Providers Care Accounts Manager Name Role Phone Frankie Weinstein MD Primary Care Provider + [phone] Errol Nugent MD Unavailable Jhonatan Henderson MD Unavailable [phone] Carmenza Ruelas WOOD PILE DRIVER OPERATOR Unavailable [phone] Rachel Danielson PhD Unavailable [phone] Paul Armstrong MD Unavailable [phone] Estee Jacome DNP Unavailable [phone] Gonzalo Cespedes MD Unavailable [phone] Encounter Details Date Type Department Care Team (Late st Contact Info) Description 12/27/2024 Orders Only [facility] Cancer Genetics Department [address] [place] [address] Bailey Alcantara, [place] [address] [facility] [address] [place] [address] Social History Tobacco Use Types [...] on file Legal Sex Female 4:26 PM PROCESS OWNER Gender Identity Not on file Sexual Orientation Not on file documented as of this encounter Plan of Treatment Not on file documented as of this encounter Visit Diagnoses Not on filedocumented in this encounter Care Teams Accounts Manager Relationship Specialty Start Date End Date Frankie Weinstein MD PCP - General 03/05/17 Errol Nugent MD [address] [facility] [address] [place] [address] Radiation Oncologist Radiation Oncology 08/03/18 Jhonatan Henderson MD [address] [facility] [address] [place] [address] Referring Physician Surgical Oncology 08/03/18 Carmenza Ruelas CNS [address] [facility] [address] [place] [address] Nurse Practitioner Certified Clinical Nurse Specialist 08/03/18 Rachel Danielson, PhD [address] [facility] [address] [place] [address] Nurse Practitioner Radiation Oncology 08/03/18 Paul Armstrong MD [address] [place] [address] Referring Physician Medical Oncology 08/03/18 Estee Jacome DNP [address] [place] [address] [address] [place] [address] Nurse Practitioner Nurse Practitioner 08/03/18 Gonzalo Cespedes MD [address] [place] [address] [address] [place] [address] Consulting Physician Otolaryngology 04/06/24 documented as of this encounter
--- OUTSIDE RECORDS SUMMARY | 2025-10-05 17:27 | XMS_ITS | Encounter Summary ---
Author Organization [facility] Address [address] [facility] [place] [address] Care Team Providers Care Telephone Information Clerk Name Role Phone Frankie Weinstein MD Primary Care Provider [phone] Encounter Details Date Type Department Care Team (Late st Contact Info) Description 02/04/2024 Lab Requisition [facility] - DermPath Lab [address] [facility] [place] [address] Reji Gomez MD [address] [place] [address] Social History Tobacco Use Types Packs/Day Years Used Date Smoking Tobacco: Never Assessed Comments Unknown Sex and Gender Information Value Date Recorded Sex Assigned at Not on file Legal Sex Female 8:49 AM COMMUNICATION MANAGER Gender Identity Not on file Sexual Orientation Not on file documented as of this encounter Plan of Treatment Not on file documented as of this encounter Procedures Procedure Name Priority Date/Time Associated Diagnosis Comments DERMATOPATHOLOGY Routine 02/03/2024 3:33 AM CDT documented in this encounter Results * DERMATOPATHOLOGY (02/03/2024 3:33 AM CDT) Case Report Dermatopathology Report Case: [id number] Authorizing Provider: Reji Gomez MD Collected: 02/03/2024 03:33 AM Ordering Location: [facility] - Received: 02/05/2024 06:27 AM DermPath Lab Pathologist: Ofelia Rasmussen MD Specimen: Skin, mid nasal bridge 5:07 PM CDT DERMATOPATHOLOGY LABORATORY Final Diagnosis Specimen A. SKIN, mid nasal bridge: SEBACEOUS NEOPLASM, SUPERFICIAL PORTIONS OF (D48.5) (see microscopic description and comment) 4 5:07 PM T DERMATOPATHOLOGY LABORATORY at 1707 CDT Clinical History R/O BCC 4 5:07 PM [facility] DERMATOPATHOLOGY LABORATORY Gross Description Specimen A: Received is one formalin filled container labeled with the patient's name and designated mid nasal bridge. The specimen consists of a shave biopsy measuring 4x3x2 mm. Jar 0. 4 5:07 PM [facility] DERMATOPATHOLOGY LABORATORY Microscopic Description Specimen A. SKIN, [...] criteria in dermatopathology: Initial recommendations from the [place] Society of Dermatopathology. J Cutan Pathol. 2018 Jun;45(8):563-580. 5:07 PM T DERMATOPATHOLOGY LABORATORY Disclaimer An external and internal positive and negative controls are appropriate for the histochemical, immunohistochemical and immunofluorescence stain(s) in this case (if any), except where stated explicitly. The performance characteristics of the stain(s) cited in this report were developed and its performance characteristic determined by the Dermatopathology Laboratory at [facility], directed by Dr. Henny Pond. These tests need not be, and therefore are not, approved by the [place] Food and Drug Administration. The tests are used for clinical purposes. Billing Codes Specimen Charges Stain Charges 01741 1 4 5:07 PM CDT DERMATOPATHOLOGY LABORATORY Embedded Images 4 5:07 PM CDT DERMATOPATHOLOGY LABORATORY Pathology/Cytolo gy TISSUE SPECIMEN FROM SKIN / Unknown 02/03/2024 3:33 AM CDT 02/05/2024 6:27 AM CDT Reji Gomez MD LAB - PATHOLOGY/CYTOLOGY ORDERAB LES Final Result DERMATOPATHOLOGY LABORATORY [facility] - Department of Dermatology [facility] Medicine [address] [place] [address], [address]rd Floor [address] [phone] documented in this encounter Visit Diagnoses Not on filedocumented in this encounter Care Teams Telephone Information Clerk Relationship Specialty Start Date End Date Frankie Weinstein MD [address] [place] [address] PCP - General 12/23/19 documented as of this encounter
--- OUTSIDE RECORDS SUMMARY | 2025-10-05 17:28 | XMS_ITS | Clinical Summary ---
Author Organization [facility] Address [address] [place] [address] Care Team Providers Care International Banker Name Role Phone Frankie Weinstein MD Primary Care Provider [phone] Errol Nugent MD Unavailable Jhonatan Henderson MD Unavailable Carmenza Ruelas Unavailable [phone] Rachel Danielson PhD Unavailable [phone] Paul Armstrong MD Unavailable [phone] Estee Jacome [facility] Unavailable [phone] Gonzalo Cespedes MD Unavailable [phone] Allergies No known active allergies Medications meclizine [...] Pathologic:Stage IB(pT2, pN0(sn), cM0, G3, ER: Positive, [place]: Positive, HER2: Negative) - Signed by Rachel Danielson, PhD on 08/03/2018 Resolved Problems Problem Noted Date Diagnosed Date Resolved Date Palpitations 04/06/2013 10/10/2024 Encounters Date Type Department Care Team Description 08/11/2025 Telephone [facility] [address] [address] Rick Herbert MD 08/11/2025 Orders Only [facility] [address] [place] [address] [place] [address] Provider, MD Fadi from Last 3 Months Surgical History Surgery Date Site/Laterality Comments HYSTERECTOMY BREAST LUMPECTOMY Right Medical History Medical History Date Comments Breast cancer (HCC) Palpitations Family History Medical History Relation Name Comments No Known Problems Daughter 2 Melaina cancer gen etic testing panel negative No Known Problems Father [...] Comments Daughter 1 Carlyn Alive Daughter 2 Brianaa Alive Father Evaristo Alive Father's Brother 1 [...] on file Legal Sex Female 4:26 PM SAFE DEPOSIT CLERK Gender Identity Not on file Sexual Orientation Not on file Last Filed Vital Signs Vital Sign Reading Time Taken Comments Blood Pressure 110/56 05/05/2025 10:11 AM CDT Pulse 90 05/05/2025 10:11 AM CDT Temperature 36.6 C (97.8 F) 10/28/2024 7:18 AM SAFE DEPOSIT CLERK Respiratory Rate 19 12/06/2024 1:16 PM SAFE DEPOSIT CLERK Oxygen Saturation 98% 12/06/2024 1:16 PM SAFE DEPOSIT CLERK Inhaled Oxygen Concentration - - Weight 68.6 [...] Visit 65+ 2021 Covid-19 Vaccine (5 - 2024-2 6 season) 2025 08/20/2022, 11/01/2021, 03/08/2021, Additional history exists Influenza Vaccine (#1) 2025 4, 08/20/2022, 10/01/2021 DTaP/Tdap/Td Vaccine (2 - Td or Tdap) 01/25/2033 01/25/2023 Medical Devices Implanted Type Area Hospital Superintendent Device Identifier Shelf Expiration Date Model / Serial / Lot [employer] Device Vascular Closure Vascade Mvp Xl 10-12fr Venous Strl 800-1012xl - [id number] - [id number] Implanted:Qty: 1 on 10/28/2024 by Rick Herbert MD at [facility] Collagen [employer] 07/26/2026 800-1012XL / [id number] / [id number] [employer] Device Closure Vascade Od5 Fr Femoral Artery 960-891st-34u - [id number] - [id number] Implanted:Qty: 1 on 10/28/2024 by Rick Herbert MD at [facility] Collagen [employer] 08/23/2026 700-500DX- 05U / [id number] / [id number] [employer] Device Vascular Closure Femoral Artery Bioabsorbable Dual Method Vascade 6-7fr Collagen 637-676b-10f - [id number] - [id number] Implanted:Qty: 1 on 10/28/2024 by Rick Herbert MD at [facility] Collagen [employer] 08/17/2026 [id number]-0 5U / [id number] / [id number] Roman Vascular System Closure Repair Femoral Artery Suture Mediated Perclose Prostyle 80709-92 - [id number] - [id number] Implanted:Qty: 1 on 10/28/2024 by Rick Herbert MD at [facility] [employer] 08/15/2026 66727 -03 / [id number] / [id number] Roman Vascular System Closure Repair Femoral Artery Suture Mediated Perclose Prostyle 91288-70 - [id number] - [id number] Implanted:Qty: 1 on 10/28/2024 by Rick Herbert MD at [facility] [employer] 08/15/2026 69440 -03 / [id number] / [id number] Procedures Procedure Name Priority Date/Time Associated Diagnosis Comments CARDIOLOGY DOCUMENT SCAN Routine 08/11/2025 9:00 AM CDT MAMMOGRAPHY, TOMOGRAPHY, BILATERAL Routine 10/14/2017 3:12 PM SAFE DEPOSIT CLERK from Last 3 Months or Most Recently Relevant to Health Maintenance Results * Cardiology Document Scan (08/11/2025 9:00 AM CDT) Anatomical Region Laterality Modality Other us Historical Provider [facility] LALITA ROLLINS Final Result * MAMMOGRAPHY, TOMOGRAPHY, BILATERAL (10/14/2017 3:12 PM SAFE DEPOSIT CLERK) Anatomical Region Laterality Modality Bilateral Mammography 10/14/2017 3:12 PM SAFE DEPOSIT CLERK Narrative 10/14/2017 7:08 PM SAFE DEPOSIT CLERK URSZULA MATAMOROS M.D. ADRIANA SHIRLEY M.D. FINAL REPORT The radiology attending physician has personally reviewed this study, and has reviewed and/or edited this written report and agrees with it. ACC# Date Time Exam [id number] Oct 14, 2017 09:12:00 [facility] 22674 Dig Breast Micky Shahram Technologist(s): Nithya Perez; ; [id number] Oct 14, 2017 09:12:00 [facility] 02202 Diag Mamm, inc CAD, bilat Technologist(s): Nithya [...] Urszula Matamoros M.D. Requested By: Carmenza Ruelas [facility] Dictated By: ADRIANA SHIRLEY M.D. on Oct 14 2017 10:10A This document has been electronically signed by: URSZULA MATAMOROS M.D. on Oct 14 2017 1:06P [id number] RAYMUNDO M.D. FINAL REPORT The radiology attending physician has personally reviewed this study, and has reviewed and/or edited this written report and agrees with it. Attending: CARMENZA RUELAS Requesting: Carmenza Ruelas Requesting Fax: Attending Fax: Attending ID: [id number] Requesting ID: [id number] Report To 1 ID: [id number] Report To 1 Name: , Report To 1 FAX: NextGen Order #: Procedure Note Miscellaneous, Not In File - 10/14/2017 URSZULA MATAMOROS M.D. ADRIANA SHIRLEY M.D. FINAL REPORT The radiology attending physician has personally reviewed this study, and has reviewed and/or edited this written report and agrees with it. ACC# Date Time Exam [id number] Oct 14, 2017 09:12:00 [facility] 91776 Dig Breast Micky Shahram Technologist(s): Nithya Perez; ; [id number] Oct 14, 2017 09:12:00 [facility] 71181 Dia Mamm, inc CAD, bilat Technologist(s): Nithya [...] MATAMOROS M.D. on Oct 14 2017 1:06P [id number] RAYMUNDO M.D. FINAL REPORT The radiology attending physician has personally reviewed this study, and has reviewed and/or edited this written report and agrees with it. Attending: CARMENZA RUELAS Requesting: Carmenza Ruelas Requesting Fax: Attending Fax: Attending ID: [id number] Requesting ID: [id number] Report To 1 ID: [id number] Report To 1 Name: , Report To 1 FAX: NextGen Order #: Carmenza PHILLIPS IMG MAMMO PROCEDURES Final R esult from Last 3 Months or Most Recently Relevant to [place] [address] [employer] MEDICARE GOLD [facility] MEDICARE GOLD [employer] MEDICARE GOLD Care Teams International Banker Relationship Specialty Start Date End Date Frankie Weinstein MD PCP - General 03/05/17 Errol Nugent MD [address] [facility] [place] [address] [place], [place] [id number] Radiation Oncologist Radiation Oncology 08/03/18 Jhonatan Henderson MD [address] [facility] [place] [address] [place] [address] Referring Physician Surgical Oncology 08/03/18 Carmenza Ruelas, SAFETY MANAGER [address] [address] Nurse Practitioner Certified Clinical Nurse Specialist 08/03/18 Rachel Danielson, PhD [address] [address] Nurse Practitioner Radiation Oncology 08/03/18 Paul Armstrong MD [address] [place] [address] Referring Physician Medical Oncology 08/03/18 Estee Jacome DNP [address] [facility] [address] [place] [address] Nurse Practitioner Nurse Practitioner 08/03/18 Gonzalo Cespedes MD [address] [place] [address] [address] [place] [address] Consulting Physician Otolaryngology 04/06/24
[2025-10-07 13:08] LABS: Estrogens, Total 43 pg/mL (40-244)
== END 2025-10-05 14:19 | disposition home or self-care (01) ==
LOC: ANHLAB 14:19
PROVIDERS: PCP Family Medicine; Visit Provider Nurse Practitioner Adult Health
DX: N95.9 Unspecified menopausal and perimenopausal disorder (principal); R79.89 Other specified abnormal findings of blood chemistry
CPT/HCPCS: 82672; 82677; 83090

== ENCOUNTER 2025-10-17 07:55 | Outpatient (CLI) | payer MEDICARE, SELFPAY ==
--- OUTSIDE RECORDS SUMMARY | 2025-10-17 08:00 | XMS_ITS | Encounter Summary ---
Author Organization [facility] Address [address] [facility] [place] [address] Care Team Providers Care Director Compliance Name Role Phone Frankie Weinstein MD Primary Care Provider [phone] Encounter Details Date Type Department Care Team (Late st Contact Info) Description 02/04/2024 Lab Requisition [facility] - DermPath Lab [address] [facility] [place] [address] Reji Gomez MD [address] [place] [address] Social History Tobacco Use Types Packs/Day Years Used Date Smoking Tobacco: Never Assessed Comments Unknown Sex and Gender Information Value Date Recorded Sex Assigned at Not on file Legal Sex Female 8:49 AM ICT DEVELOPER Gender Identity Not on file Sexual Orientation Not on file documented as of this encounter Plan of Treatment Not on file documented as of this encounter Procedures Procedure Name Priority Date/Time Associated Diagnosis Comments DERMATOPATHOLOGY Routine 02/03/2024 3:33 AM CDT documented in this encounter Results * DERMATOPATHOLOGY (02/03/2024 3:33 AM CDT) Case Report Dermatopathology Report Case: [id number] Authorizing Provider: Reji Gomez MD Collected: 02/03/2024 03:33 AM Ordering Location: [facility] - Received: 02/05/2024 06:27 AM DermPath Lab Pathologist: Ofelia Rasmussen MD Specimen: Skin, mid nasal bridge 5:07 PM CDT DERMATOPATHOLOGY LABORATORY Final Diagnosis Specimen A. SKIN, mid nasal bridge: SEBACEOUS NEOPLASM, SUPERFICIAL PORTIONS OF (D48.5) (see microscopic description and comment) 4 5:07 PM T DERMATOPATHOLOGY LABORATORY at 1707 CDT Clinical History R/O BCC 4 5:07 PM [facility] DERMATOPATHOLOGY LABORATORY Gross Description Specimen A: Received is one formalin filled container labeled with the patient's name and designated mid nasal bridge. The specimen consists of a shave biopsy measuring 4x3x2 mm. Jar 0. 4 5:07 PM [facility] DERMATOPATHOLOGY LABORATORY Microscopic Description Specimen [...] neoplasms can be sporadic or associated with Tuckerton-Joel Syndrome. While mismatch repair protein immunohistochemistr y [...] criteria in dermatopathology: Initial recommendations from the [place] Society of Dermatopathology. J Cutan Pathol. 2018 Jun;45(8):563-580. 5:07 PM T DERMATOPATHOLOGY LABORATORY Disclaimer An external and internal positive and negative controls are appropriate for the histochemical, immunohistochemical and immunofluorescence stain(s) in this case (if any), except where stated explicitly. The performance characteristics of the stain(s) cited in this report were developed and its performance characteristic determined by the Dermatopathology Laboratory at [facility], directed by Dr. Henny Pond. These tests need not be, and therefore are not, approved by the [place] Food and Drug Administration. The tests are used for clinical purposes. Billing Codes Specimen Charges Stain Charges 80774 1 4 5:07 PM CDT DERMATOPATHOLOGY LABORATORY Embedded Images 4 5:07 PM CDT DERMATOPATHOLOGY LABORATORY Pathology/Cytolo gy TISSUE SPECIMEN FROM SKIN / Unknown 02/03/2024 3:33 AM CDT 02/05/2024 6:27 AM CDT Reji Gomez MD LAB - PATHOLOGY/CYTOLOGY ORDERAB LES Final Result DERMATOPATHOLOGY LABORATORY [facility] - Department of Dermatology [facility] Medicine [address] [place] [address], [address]rd Floor [address] [phone] documented in this encounter Visit Diagnoses Not on filedocumented in this encounter Care Teams Director Compliance Relationship Specialty Start Date End Date Frankie Weinstein MD [address] [place] [address] PCP - General 12/23/19 documented as of this encounter
--- OUTSIDE RECORDS SUMMARY | 2025-10-17 08:00 | XMS_ITS | Encounter Summary ---
Author Organization [facility] Address [address] [place] [address] Care Team Providers Care Shoe Folder Name Role Phone Frankie Weinstein MD Primary Care Provider [phone] Errol Nugent MD Unavailable Jhonatan Henderson MD Unavailable [phone] Carmenza Ruelas ELECTRIC MOTOR MECHANIC Unavailable [phone] Rachel Danielson PhD Unavailable [phone] Paul Armstrong MD Unavailable [phone] Estee Jacome DNP Unavailable [phone] Gonzalo Cespedes MD Unavailable [phone] Encounter Details Date Type Department Care Team (Late st Contact Info) Description 12/27/2024 Orders Only [facility] Cancer Genetics Department [address] [place] [address] Bailey Alcantara, [place] [id number] [facility] [address] [place] [address] Social History Tobacco Use Types [...] on file Legal 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 Female 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 Gender Identity Not on file Sexual Orientation Not on file documented as of this encounter Plan of Treatment Not on file documented as of this encounter Visit Diagnoses Not on filedocumented in this encounter Care Teams Shoe Folder Relationship Specialty Start Date End Date Frankie Weinstein MD PCP - General 03/05/17 Errol Nugent MD [address] [facility] [address] [place] [address] Radiation Oncologist Radiation Oncology 08/03/18 Jhonatan Henderson MD [address] [facility] [address] [place] [address] Referring Physician Surgical Oncology 08/03/18 Carmenza Ruelas CNS [address] [facility] [address] [place] [address] Nurse Practitioner Certified Clinical Nurse Specialist 08/03/18 Rachel Danielson, PhD [address] [facility] [address] [place] [address] Nurse Practitioner Radiation Oncology 08/03/18 Paul Armstrong MD [address] [place] [address] Referring Physician Medical Oncology 08/03/18 Estee Jacome DNP [address] [place] [address] [address] [place] [address] Nurse Practitioner Nurse Practitioner 08/03/18 Gonzalo Cespedes MD [address] [place] [address] [address] [place] [address] Consulting Physician Otolaryngology 04/06/24 documented as of this encounter
--- OUTSIDE RECORDS SUMMARY | 2025-10-17 08:00 | XMS_ITS | Encounter Summary ---
Author Organization [facility] Address [address] [facility] [place] [address] Care Team Providers Care As400 Developer Name Role Phone Frankie Weinstein MD Primary Care Provider [phone] Encounter Details Date Type Department Care Team (Late st Contact Info) Description 12/23/2019 Lab Requisition [facility] DermPath Lab [address] [place] [address] Reji Gomez MD [address] [place] [address] Social History Tobacco Use Types Packs/Day Years Used Date Smoking Tobacco: Never Assessed Comments Unknown Sex and Gender Information Value Date Recorded Sex Assigned at Not on file Legal Sex Female 8:49 AM MANDARIN SPEAKING NANNY Gender Identity Not on file Sexual Orientation Not on file documented as of this encounter Plan of Treatment Not on file documented as of this encounter Procedures Procedure Name Priority Date/Time Associated Diagnosis Comments DERMATOPATHOLOGY Routine 12/22/2019 12:0 0 AM MANDARIN SPEAKING NANNY documented in this encounter Results * DERMATOPATHOLOGY (12/22/2019 12:00 AM MANDARIN SPEAKING NANNY) Case Report Dermatopathology Report Case: [id number] Authorizing Provider: Reji Gomez MD Collected: 12/22/2019 12:00 AM Ordering Location: [facility] DermPath Lab Received: 12/23/2019 09:12 AM Pathologist: Kera Lemus MD Specimen: Skin, right upper nasal wall 0 12:54 PM MANDARIN SPEAKING NANNY DERMATOPATHOLOGY LABORATORY Final Diagnosis Specimen A. SKIN, right upper nasal wall: SEBORRHEIC KERATOSIS, INFLAMED (L82.0) 0 12:54 PM MANDARIN SPEAKING NANNY DERMATOPATHOLOGY LABORATORY at 1254 MANDARIN SPEAKING NANNY Clinical History R/O neoplasm. 0 12:54 PM [facility] DERMATOPATHOLOGY LABORATORY Gross Description Specimen A: Received is one formalin filled container labeled with the patient's name and designated right upper nasal wall. The specimen consists of a shave biopsy measuring 4m8m1nn. Jar 0. 0 12:54 PM [facility] DERMATOPATHOLOGY LABORATORY Microscopic Description Specimen A. SKIN, right upper nasal wall: There is hyperkeratosis, parakeratosis, papillomatosis, and acanthosis of the epidermis. 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 0 12:54 PM [facility] DERMATOPATHOLOGY LABORATORY Disclaimer An external and internal positive and negative controls are appropriate for the histochemical, immunohistochemical and immunofluorescence stain(s) in this case (if any), except where stated explicitly. The performance characteristics of the stain(s) cited in this report were developed and its performance characteristic determined by the Dermatopathology Laboratory at [facility], directed by Dr. Henny Pond. These tests need not be, and therefore are not, approved by the [place] Food and Drug Administration. The tests are used for clinical purposes. Billing Codes Specimen Charges Stain Charges 29356 1 0 12:54 PM [facility] DERMATOPATHOLOGY LABORATORY Embedded Images 0 12:54 PM [facility] DERMATOPATHOLOGY LABORATORY Pathology/Cytolog y TISSUE SPECIMEN FROM SKIN / Unknown 12/22/2019 12/23/2019 9:12 AM MANDARIN SPEAKING NANNY Reji Gomez MD LAB - PATHOLOGY/CYTOLOGY ORDERAB LES Final Result DERMATOPATHOLOGY LABORATORY [facility] - Department of Dermatology [facility] [facility], 5th [place] [address], [facility] [phone] documented in this encounter Visit Diagnoses Not on filedocumented in this encounter Care Teams As400 Developer Relationship Specialty Start Date End Date Frankie Weinstein MD [address] [place] [address] PCP - General 12/23/19 documented as of this encounter
--- OUTSIDE RECORDS SUMMARY | 2025-10-17 08:00 | XMS_ITS ---
Author Organization [facility] Address [address] [place] [address] Care Team Providers Care Watch Band Assembler Name Role Phone Frankie Weinstein MD Primary Care Provider [phone] Errol Nugent MD Unavailable Jhonatan Henderson MD Unavailable Carmenza Ruelas FRAMING MILL OPERATOR HELPER Unavailable [phone] Rachel Danielson PhD Unavailable [phone] Paul Armstrong MD Unavailable [phone] Estee Jacome [facility] Unavailable [phone] Gonzalo Cespedes MD Unavailable [phone] Active Problems Problem Noted Date Diagnosed Date [...] Pathologic:Stage IB(pT2, pN0(sn), cM0, G3, ER: Positive, CO: Positive, HER2: Negative) - Signed by Rachel [...]
--- OUTSIDE RECORDS SUMMARY | 2025-10-17 08:00 | XMS_ITS | Encounter Summary ---
Author Organization [facility] Address [address] [facility] [place] [address] Care Team Providers Care Graining Press Operator Name Role Phone Frankie Weinstein MD Primary Care Provider [phone] Encounter Details Date Type Department Care Team (Late st Contact Info) Description 02/25/2024 Lab Requisition [facility] - DermPath Lab [address] [facility] [place] [address] Reji Gomez MD [address] [place] [address] Social History Tobacco Use Types Packs/Day Years Used Date Smoking Tobacco: Never Assessed Comments Unknown Sex and Gender Information Value Date Recorded Sex Assigned at Not on file 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 Gender Identity Not on file Sexual Orientation Not on file documented as of this encounter Plan of Treatment Not on file documented as of this encounter Procedures Procedure Name Priority Date/Time Associated Diagnosis Comments DERMATOPATHOLOGY Routine 02/24/2024 3:33 AM CDT documented in this encounter Results * DERMATOPATHOLOGY (02/24/2024 3:33 AM CDT) Case Report Dermatopathology Report Case: [id number] Authorizing Provider: Reji Gomez MD Collected: 02/24/2024 03:33 AM Ordering Location: [facility] - Received: [...] characteristic determined by the Dermatopathology Laboratory at [facility], directed by Dr. Henny Pond. These tests need not be, and therefore are not, approved by the [place] Food and Drug Administration. The tests are used for clinical purposes. Billing Codes Specimen Charges Stain Charges 79468 1 4 2:43 PM CDT DERMATOPATHOLOGY LABORATORY Embedded Images 4 2:43 PM CDT DERMATOPATHOLOGY LABORATORY Pathology/Cytolo gy TISSUE SPECIMEN FROM SKIN / Unknown 02/24/2024 3:33 AM CDT 02/26/2024 7:00 AM CDT Reji Gomez MD LAB - PATHOLOGY/CYTOLOGY ORDERAB LES Final Result DERMATOPATHOLOGY LABORATORY [facility] - Department of Dermatology [address], [address] [phone] documented in this encounter Visit Diagnoses Not on filedocumented in this encounter Care Teams Graining Press Operator Relationship Specialty Start Date End Date Frankie Weinstein MD [address] [place] [address] PCP - General 12/23/19 documented as of this encounter
--- OUTSIDE RECORDS SUMMARY | 2025-10-17 08:00 | XMS_ITS | Clinical Summary ---
Author Organization [facility] Address [address] [facility] [place] [address] Care Team Providers Care Traveling Clerk Name Role Phone Frankie Weinstein MD Primary Care Provider [phone] Source Comments [facility],non-owned Affiliates and Associated Physician Practices is amultiple site organization consisting of ambulatory clinics and hospital sitesin [place], [place], [place] and [place]. This disclosure is being madepursuant to the Care Everywhere program and may not contain all information available regarding this patient. Last updated 18.[facility] [employer] Allergies No known active allergies Medications * [...] on file Legal Sex Female 8:49 AM MARINA DRY DOCK MANAGER Gender Identity Not on file Sexual Orientation Not on file Last Filed Vital Signs Vital Sign Reading Time Taken Comments Blood Pressure 106/60 12/29/2024 10:32 AM MARINA DRY DOCK MANAGER Pulse 74 12/29/2024 10:32 AM MARINA DRY DOCK MANAGER Temperature 36 C (96.8 F) 12/29/2024 10:32 AM MARINA DRY DOCK MANAGER Respiratory Rate - - Oxygen Saturation - - Inhaled Oxygen Concentration - - Weight 69.1 kg (152 lb 6.4 oz) 12/29/2024 10:32 AM MARINA DRY DOCK MANAGER Height 172.7 cm (5' 8) 12/29/2024 10:32 AM MARINA DRY DOCK MANAGER Body Mass Index 23.17 12/29/2024 10:32 AM MARINA DRY DOCK MANAGER Plan of Treatment Health Maintenance Due Date [...] patient's age to complete this topic Insurance [facility] A[employer] MEDIC[facility] ADV Care Teams Traveling Clerk Relationship Specialty Start Date End Date Frankie Weinstein MD [address] [place] [address] PCP - General 12/23/19
--- OUTSIDE RECORDS SUMMARY | 2025-10-17 08:01 | XMS_ITS | Clinical Summary ---
Author Organization [facility] Address [address] [place] [address] Care Team Providers Care Patient Account Representative Name Role Phone Frankie Weinstein MD Primary Care Provider [phone] Errol Nugent MD Unavailable Jhonatan Henderson MD Unavailable Carmenza Ruelas Unavailable [phone] Rachel Danielson PhD Unavailable [phone] Paul Armstrong MD Unavailable [phone] Estee Jacome [facility] Unavailable [phone] Gonzalo Cespedes MD Unavailable [phone] Allergies No known active allergies Medications meclizine [...] Pathologic:Stage IB(pT2, pN0(sn), cM0, G3, ER: Positive, [place]: Positive, HER2: Negative) - Signed by Rachel Danielson, PhD on 08/03/2018 Resolved Problems Problem Noted Date Diagnosed Date Resolved Date Palpitations 04/06/2013 10/10/2024 Encounters Date Type Department Care Team Description 08/11/2025 Telephone [facility] [address] [address] Rick Herbert MD 08/11/2025 Orders Only Arrhythmia Center [address] [place] [address] [place] [address] Provider, MD Fadi from Last [...] on file Legal Sex Female 4:26 PM LUMBER CUTTER Gender Identity Not on file Sexual Orientation Not on file Last Filed Vital Signs Vital Sign Reading Time Taken Comments Blood Pressure 110/56 05/05/2025 10:11 AM CDT Pulse 90 05/05/2025 10:11 AM CDT Temperature 36.6 C (97.8 F) 10/28/2024 7:18 AM LUMBER CUTTER Respiratory Rate 19 12/06/2024 1:16 PM LUMBER CUTTER Oxygen Saturation 98% 12/06/2024 1:16 PM LUMBER CUTTER Inhaled Oxygen Concentration - - Weight 68.6 [...] 01/25/2033 01/25/2023 Medical Devices Implanted Type Area Import Coordination And Production Head Device Identifier Shelf Expiration Date Model / Serial / Lot [employer] Device Vascular Closure Vascade Mvp Xl 10-12fr Venous Strl 800-1012xl - [id number] - [id number] Implanted:Qty: 1 on 10/28/2024 by Rick Herbert MD at [facility] Collagen [employer] 07/26/2026 [id number] / [id number] / [id number] [employer] Device Closure Vascade Od5 Fr Femoral Artery [id number]-97d - [id number] - [id number] Implanted:Qty: 1 on 10/28/2024 by Rick Herbert MD at [facility] Collagen [employer] 08/23/2026 700-500DX- 05U / [id number] / [id number] [employer] Device Vascular Closure Femoral Artery Bioabsorbable Dual Method Vascade 6-7fr Collagen [id number]-63a - [id number] - [id number] Implanted:Qty: 1 on 10/28/2024 by Rick Herbert MD at [facility] Collagen [employer] 08/17/2026 [id number]-0 5U / [id number] / [id number] Roman Vascular System Closure Repair Femoral Artery Suture Mediated Perclose Prostyle 94218-43 - [id number] - [id number] Implanted:Qty: 1 on 10/28/2024 by Rick Herbert MD at [facility] [employer] 08/15/2026 08730 -03 / [id number] / [id number] Roman Vascular System Closure Repair Femoral Artery Suture Mediated Perclose Prostyle 16539-14 - [id number] - [id number] Implanted:Qty: 1 on 10/28/2024 by Rick Herbert MD at [facility] [employer] 08/15/2026 27940 -03 / [id number] / [id number] Procedures Procedure Name Priority Date/Time Associated Diagnosis Comments CARDIOLOGY DOCUMENT SCAN Routine 08/11/2025 9:00 AM CDT MAMMOGRAPHY, TOMOGRAPHY, BILATERAL Routine 10/14/2017 3:12 PM LUMBER CUTTER from Last 3 Months or Most Recently Relevant to Health Maintenance Results * Cardiology Document Scan (08/11/2025 9:00 AM CDT) Anatomical Region Laterality Modality Other us Historical Provider [facility] LALITA ROLLINS Final Result * MAMMOGRAPHY, TOMOGRAPHY, BILATERAL (10/14/2017 3:12 PM LUMBER CUTTER) Anatomical Region Laterality Modality Bilateral Mammography 10/14/2017 3:12 PM LUMBER CUTTER Narrative 10/14/2017 7:08 PM LUMBER CUTTER URSZULA MATAMOROS M.D. ADRIANA SHIRLEY M.D. FINAL REPORT The radiology attending physician has personally reviewed this study, and has reviewed and/or edited this written report and agrees with it. ACC# Date Time Exam [id number] Oct 14, 2017 09:12:00 [facility] [address] Dig Breast Micky Shahram Technologist(s): Nithya Perez; ; [id number] Oct 14, 2017 09:12:00 [facility] [address]109 Diag Mamm, inc CAD, bilat Technologist(s): Nithya [...] Urszula Matamoros M.D. Requested By: Carmenza Ruelas [facility] Dictated By: ADRIANA SHIRLEY M.D. on Oct 14 2017 10:10A This document has been electronically signed by: URSZULA MATAMOROS M.D. on Oct 14 2017 1:06P [id number] RAYMUNDO M.D. FINAL REPORT The radiology attending physician has personally reviewed this study, and has reviewed and/or edited this written report and agrees with it. Attending: CARMENZA RUELAS Requesting: Carmenza Ruelas Requesting Fax: Attending Fax: Attending ID: [id number] Requesting ID: [id number] Report To 1 ID: [id number] Report To 1 Name: , Report To 1 FAX: NextGen Order #: Procedure Note Miscellaneous, Not In File - 10/14/2017 URSZULA MATAMOROS M.D. ADRIANA SHIRLEY M.D. FINAL REPORT The radiology attending physician has personally reviewed this study, and has reviewed and/or edited this written report and agrees with it. ACC# Date Time Exam [id number] Oct 14, 2017 09:12:00 [facility] [address] Dig Breast Micky Shahram Technologist(s): Nithya Perez; ; [id number] Oct 14, 2017 09:12:00 [facility] [address] Dia Mamm, inc CAD, bilat Technologist(s): Nithay Perez; ; EXAMINATION: BILATERAL DIGITAL DIAGNOSTIC MAMMOGRAM [...] MATAMOROS M.D. on Oct 14 2017 1:06P [id number] RAYMUNDO M.D. FINAL REPORT The radiology attending physician has personally reviewed this study, and has reviewed and/or edited this written report and agrees with it. Attending: CARMENZA RUELAS Requesting: Carmenza Ruelas Requesting Fax: Attending Fax: Attending ID: [id number] Requesting ID: [id number] Report To 1 ID: [id number] Report To 1 Name: , Report To 1 FAX: NextGen Order #: Carmenza PHILLIPS IMG MAMMO PROCEDURES Final R esult from Last 3 Months or Most Recently Relevant to Health [place] [address] AETNA MEDICARE GOLD [facility] MEDICARE GOLD AETNA MEDICARE GOLD Care Teams Patient Account Representative Relationship Specialty Start Date End Date Frankie Weinstein MD PCP - General 03/05/17 Errol Nugent MD [address] [facility] [address] [place], [place] [id number] Radiation Oncologist Radiation Oncology 08/03/18 Jhonatan Henderson MD [address] [facility] [address] [place] [address] Referring Physician Surgical Oncology 08/03/18 Carmenza Ruelas, DISPLAYER MERCHANDISE [address] [address] Nurse Practitioner Certified Clinical Nurse Specialist 08/03/18 Rachel Danielson, PhD [address] [address] Nurse Practitioner Radiation Oncology 08/03/18 Paul Armstrong MD [address] [place] [address] Referring Physician Medical Oncology 08/03/18 Estee Jacome DNP [address] [facility] [address] [place] [address] Nurse Practitioner Nurse Practitioner 08/03/18 Gonzalo Cespedes MD [address] [place] [address] [address] [place] [address] Consulting Physician Otolaryngology 04/06/24
--- NOTE | 2025-11-14 10:32 | WPDSLEEPSTUD ---
Sleep Study Date of Study: 10/17/25 Ordering Provider: JOEY Boswell Interpreting Physician: Nina Shanks MD Sleep Study Type: Polysomnogram Height: 1.73 m Weight: 67.132 kg Body Mass Index: 22.5 Neck Circumference (inches): 15 [place]: 10 Reason for Sleep Study Non-restorative sleep, snoring if she sleeps on her back, irregular heart beats Sleep History Beatriz Courtney is a 70-year-old woman with poor quality sleep, does not awaken feeling refreshed. She never awakens from sleep short of breath. She never wakes at night with heartburn, belching or coughing.??She occasionally snores, and occasionally snores loudly enough that others complain. She occasionally has trouble sleeping when she has a cold. She never wakes up gasping for breath during the night. She never has breathing problems at night. She never sweats excessively at night. She occasionally notices her heart pounding or beating irregularly during the night. She occasionally falls asleep during the day. She never falls asleep involuntarily, never falls asleep while driving. She never experiences loss of muscle tone with strong emotion. She never feels paralyzed on waking or falling asleep. She never experiences vivid dreams upon waking or falling asleep. She never feels afraid of going to sleep. She never has nightmares. She occasionally recalls her dreams. She occasionally has thoughts racing through her mind. She occasionally feels sad or depressed. She occasionally feels anxiety. She never notices parts of her body jerk. She never kicks during the night. She never feels crawling or aching feelings in her legs. She occasionally feels leg pain at night. She rarely has morning jaw pain, and occasionally grinds her teeth at night. She rarely feels bothered by pain during the day, is never awakened by pain during the night. She occasionally wakes up feeling stiff in the morning, occasionally wakes feeling sore or achy in the morning. She rarely awakens with pain in her neck, spine, or joints. Normal bedtime is 12 midnight, falling asleep in 10-15 minutes, waking 1-2 times at night for 10 minutes, tossing and turning. She wakes at 7:30 am. She reports getting 6-7 hours of sleep per night. Weekend schedule is similar, bedtime is 1 am, wakes at 8:30 am. Habits:??Tobacco: never Caffeine: none Alcohol:2 per week Recreational substances: none [facility] Past Medical History Medical History Sebaceous cyst of axilla Impacted cerumen of left ear Eustachian tube dysfunction Sinusitis Bronchitis Palpable mass of soft tissue of foot Allergic reaction to wasp sting Cellulitis Fatigue Post menopausal problems Acute bacterial bronchitis Blood in stool Deviated nasal septum Hypertrophy of nasal turbinates Pneumonia Sinusitis chronic, ethmoidal Wheezing Bibasilar crackles Sinus disease Community acquired pneumonia Persistent cough Shortness of breath Constipation Constipation Vertigo Atrial fibrillation with RVR Irregular heart beat Grieving Allergic reaction Minimal cognitive impairment New onset atrial fibrillation EDUARDO (acute kidney injury) Vitamin B12 deficiency Hypomagnesemia Anxiety Sjogrens syndrome Alopecia Elevated liver enzymes Low back pain Shoulder pain Neck pain Raynaud's phenomenon (by history or observed) Breast cancer Screening, lipid Surgical History Surgical History History of lumpectomy of right breast H/O: hysterectomy Family History Family History Mother Hypertension Parkinson's disease Grandparent Family history of malignant neoplasm Father No problems noted. Sibling Heart disease Social History Social History Social History: Caffeine-limited Smoking status: Never smoker Second hand tobacco smoke exposure: No Alcohol intake: current Drinks per week: 1 Alcohol use details: wine Substance use: never Substance use type: does not use Lack of Transportation: No Lack of Food: Never True Current Housing: I Have Housing Concerned About Future Housing: No Difficulty Paying Gas/Electric Bills: No Difficulty Paying for Meds: No Currently Unemployed: No Education: Bachelor's Degree Difficulty w/ Childcare or Family Care: No Living arrangements: with family Occupation/Education: retired 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 Gender identity (if verbalized by the patient): Female Spiritual care concerns: No Medications Home Medications ?Medication ?Instructions ?Recorded ?Confirmed ?Type albuterol sulfate 90 mcg/actuation 1 - 2 puff inhalation Q4-6H PRN 08/19/24 08/28/25 Rx aerosol inhaler shortness of breath or wheezing #8.5 grams metoprolol tartrate 25 mg tablet See Rx Instructions .Route 07/10/25 08/28/25 Rx .COMPLEX #180 tabs dabigatran etexilate 150 mg capsule See Rx Instructions .Route 08/03/25 08/28/25 Rx .COMPLEX #60 caps metronidazole 1 % topical gel topical 08/22/25 08/28/25 History triamcinolone acetonide 0.1 % topical 08/22/25 08/28/25 History topical ointment hydroxyzine HCl 10 mg tablet 10 mg PO TID PRN itching #30 tabs 09/01/25 Rx cefdinir 300 mg capsule 300 mg PO Q12H #20 caps 10/24/25 10/24/25 Rx Sleep Procedure A full night polysomnogram using the Stromedix multi-channel system recorded the standard physiologic parameters including EEG, EOG, submentalis EMG, anterior tibialis EMG, EKG, body position, nasal and oral airflow using nasal pressure sensor and thermistor. Respiratory parameters of chest and abdominal movements were recorded with Respiratory Inductance Plethysmography belts. Oxygen saturation was recorded by pulse oximetry. Video monitoring was also performed. Sleep stages, periodic limb movements, and EEG arousals were scored in 30 second epochs according to the criteria of the AASM Scoring Manual. The Apnea-Hypopnea Index was calculated using CMS guidelines for definition of hypopnea while scoring respiratory events. She self-administered Lunesta 2 mg at the start of the test. She did not meet criteria early enough in the night for a split night study so this was conducted as a basic polysomnogram. Sleep Architecture The total recording time was 531.5 minutes. The total sleep time was 476.5 minutes. Sleep latency was 6.4 minutes. REM latency was 242.0 minutes. Sleep efficiency was 89.7%. The patient had 21 awakenings for an awakening index of 2.6. Wake after sleep onset time was 48.0 minutes. The patient spent 23.5 minutes, 4.9% of total sleep time in Stage N1. The patient spent 361.0 minutes, 75.8% in Stage N2. The patient spent 6.0 minutes, 1.3% in Stage N3. The patient spent 86.0 minutes, 18.0% in Stage REM sleep. Respiratory Analysis The patient had 22 hypopneas, 22 obstructive apneas, no mixed or central apneas for an overall Apnea Hypopnea Index of 5.5. The REM Apnea Hypopnea Index was 23.7. The NREM Apnea Hypopnea Index was 3.2. The patient had a Central Apnea Hypopnea Index of 0. There were no Respiratory Effort Related Arousals. The Respiratory Disturbance Index is 10.3 events per hour. There was no evidence of Otf-Henriquez Respirations. Arousals There were 337 total arousals for an arousal index of 42.4. There were 50 spontaneous arousals for an index of 6.3. There were 16 arousals due to respiratory events for an index of 2.0. There were 269 arousals due to periodic limb movements for an index of 33.9. There were 2 arousals due to isolated limb movements for an index of 0.3. Periodic Limb Movements The patient had 22 isolated limb movements with an index of 2.8. The patient had 660 periodic limb movements with an index of 83.1. Patient had a total of 682 limb movements with a total limb movement index of 85.9. Oximetry Data The patient had an average oxygen saturation of 93.7% in sleep with a minimum oxygen saturation of 87% and a maximum oxygen saturation of 97%. The patient had 35 oxygen desaturations that were 4% or greater resulting in an Oxygen Desaturation Index of 4.4. The patient spent 0.5 minutes, 0.1% of total sleep time with an oxygen saturation below 88%. Snoring Profile Snoring was mild to moderate. Cardiac Profile The EKG showed normal sinus rhythm, average pulse rate of 71 bpm with a minimum pulse of rate of 54 bpm and a maximum pulse rate of 91 bpm. She had occasional premature beats, no atrial fibrillation or flutter. EEG Profile Unremarkable, no evidence of seizures. Assessment and Plan Assessment and Plan (1) Obstructive sleep apnea: Code(s): G47.33 - Obstructive sleep apnea (adult) (pediatric) Status: Acute Assessment and Plan: This basic polysomnogram on 10/17/2025 shows mild obstructive sleep apnea with an apnea hypopnea index of 5.5 with desaturation to 87%. She did not meet criteria early enough in the night to proceed with a split night protocol, so this was conducted as a basic nocturnal polysomnogram. She meets criteria for treatment of mild obstructive sleep apnea with a co-morbidity of anxiety. In addition, she has cardiac disease, history of atrial fibrillation and flutter although she did not have any arrhythmia on this sleep study. I would treat her PLM disorder first, and if her sleep quality is not better, consider either autoPAP, a return to the sleep lab for a full night CPAP titration, or referral to a sleep dentist for a mandibular advancement device. She had periodic limb movements, see discussion below. (2) PLMD (periodic limb movement disorder): Code(s): G47.61 - Periodic limb movement disorder Status: Acute Assessment and Plan: The periodic limb movement arousal index is 33.9, elevated. Ferritin level is indicated to exclude iron deficiency anemia as a contributing factor. Ferritin should be 75 ng/mL or greater. If ferritin is below this, iron supplementation should be given to achieve ferritin of 75 ng/mL. There are nonpharmacologic methods to treat limb movements including daily exercise, stretching calf muscles before bed, avoiding excessive amounts of caffeine and alcohol, vitamin B supplementation, magnesium lotion massaged into legs before bed, and use of a weighted blanket. Pharmacologic therapy is very effective for restless legs syndrome and limb movements during sleep and may include [id number] voltage-gated calcium channel ligands such as gabapentin which is preferable to dopaminergic agents which can have augmentation. Data The data obtained during this sleep study is adequate for interpretation. Certification This sleep study has been reviewed by a board certified sleep medicine physician.
[2025-11-14 11:39] VITALS: BMI 22.5
== END 2025-10-18 07:00 | disposition home or self-care (01) ==
LOC: ANHCSM 07:56
PROVIDERS: PCP Family Medicine; Visit Provider Physician Assistant
DX: G47.33 Obstructive sleep apnea (adult) (pediatric) (principal); G47.61 Periodic limb movement disorder; G47.10 Hypersomnia, unspecified
CPT/HCPCS: 95810

== ENCOUNTER 2025-10-30 10:23 | Outpatient (CLI) | payer MEDICARE, SELFPAY ==
--- NOTE | ~2025-10-30 | US_ITS ---
EXAMINATION: US soft tissue LE LT, 10/30/2025 10:25 BRICK TESTER HISTORY: M79.89 - Other specified soft tissue disorders Comparison: None Technique: Shannon-scale and color Doppler images were obtained. Findings: Correlating with the palpable area there is a complex subcutaneous focus measuring 1.1 x 0.3 x 1 cm without abnormal flow. IMPRESSION: 1. Nonspecific complex cyst possibly a sebaceous cyst. Follow-up suggested to assess stability or resolution Reviewed, dictated and finalized at location P. K TESTER IMPRESSION: 1. Nonspecific complex cyst possibly a sebaceous cyst. Follow-up suggested to a ssess stability or resolution
== END 2025-10-30 10:24 | disposition home or self-care (01) ==
LOC: MICIMG 10:24
PROVIDERS: PCP Family Medicine; Visit Provider Nurse Practitioner Adult Health
DX: M79.89 Other specified soft tissue disorders (principal)
CPT/HCPCS: 76882